=== PATIENT | female | born 1960 | race African-American/Black ===

== ENCOUNTER 2020-11-06 13:10 | Emergency (ER) | payer OTHER ==
[~2020-11-06] VITALS: Ht 162.6 cm; Wt 72.6 kg
--- NOTE | 2020-11-06 13:10 | NUR ---
ED Nurse Note: PATIENT WAS [facility] FROM [facility] DUE TO CHEST PAIN. PER PATIENT SHE WAS HAVING DIALYSIS STARTED HAVING CHEST PAIN WITH SOME SHORTNESS OF BREATH. PT STATED THAT SHE WAS AT ANOTHER HOSPITAL A WEEK AGO FOR THE SAME REASON. PT STATED THAT SHE WAS DIAGNOSED WITH BLOOD CLOTS IN THE LUNGS. DR. Romero STARTED LEFT EJ, BLOOD COLLECTED AND SENT TO LAB. PT A/OX4, BP 177/89, OTHER VSS.
[2020-11-06] MEDS ORDERED: KEPPRA1000 MG ORAL (13:23)
[2020-11-06] MEDS ORDERED: GABAPENTIN100 MG ORAL (13:23)
[2020-11-06] MEDS ORDERED: AMLODIPINE BESY10 MG ORAL (13:23)
[2020-11-06] MEDS ORDERED: FOLIC ACID1 MG ORAL (13:23)
[2020-11-06] MEDS ORDERED: RENVELA0.8 GM ORAL (13:23)
[2020-11-06] MEDS ORDERED: PREZCOBIX 8001 EACH PO (13:23)
[2020-11-06] MEDS ORDERED: MULTI VITAMIN1 EACH ORAL (13:23)
--- NOTE | 2020-11-06 13:39 | Emergency Room Report ---
History of Present Illness General Chief Complaint: Chest Pain Source: Patient (Philip Dumas MD) Present Illness HPI Disclaimer: Please note that this report is being documented using [employer] technology. This can lead to erroneous entry secondary to incorrect interpretat ion by the dictating instrument. HPI: 60-year-old female history of ESRD on hemodialysis, hypertension, recent diagnosis of PE presents for evaluation of chest pain. She arrives from dialysis complaining of left-sided chest pressure for the past 2 hours. She completed 2 hours of dialysis and typically gets 4. She reports mild shortness of breath but denies cough or fever. She states she was diagnosed with a pulmonary embolism at an outside hospital last week. Does not know what medication she was started on. She is a resident of nursing facility. Denies nausea, vomiting, diaphoresis. Reports global weakness and fatigue. PMH: ESRD on hemodialysis, hypertension PSH: Vascular access port right chest Allergies: Reviewed Social Hx: Reviewed (Philip Dumas MD) Allergies: Coded Allergies: ACETAMINOPHEN (Verified Allergy, Unknown, 11/06/20) TRAMADOL (Verified Allergy, Unknown, 11/06/20) COVID-19 Screening Contact w/high risk pt: No Experienced COVID-19 symptoms?: No COVID-19 Testing performed SAFETY TECH: No (Philip Dumas MD) Nursing Documentation-PMH Hx Hypertension: Yes Hx Diabetes: Yes Hx Dialysis: Yes (Philip Dumas MD) Review of Systems All Other Systems: negative except mentioned in HPI (Philip Dumas MD) Physical Exam Vital Signs Date Time Temp Pulse Resp B/P (MAP) Pulse Ox O2 Delivery O2 Flow Rate FiO2 11/06/20 13:08 97.3 82 18 180/94 (122) 98 Room Air General: Awake and alert, no acute distress, hypertensive HEENT: NC/AT. EOMI. Chest Wall: Dialysis access port right upper chest. Cardiovascular: RRR. S1 and S2 normal. No murmur appreciated Resp: Normal work of breathing. No cough, wheezing or crackles appreciated Abdomen: Abdomen is soft, nondistended. Nontender Skin: Intact. No abrasions, laceration or rash over the exposed skin MSK: Normal tone and bulk. Moving all extremities. No obvious deformity. Neuro: Awake and alert. Mentating appropriately. (Philip Dumas MD) Medical Decision Making Diagnostic Impression: Primary Impression: Chest pain Qualified Codes: R07.9 - Chest pain, unspecified Additional Impression: ESRD on dialysis ER Course 60-year-old female history of ESRD and recent PE diagnosed presents for evaluation of chest pain. She arrives from dialysis having completed have her treatment. Differential includes was not limited to increased PE burden, incomplete dialysis, ACS, angina, CHF, hypertensive urgency, hypertensive emergency, pneumonia, pulmonary edema among others. She arrives hypertensive. A left external jugular line was placed by me as the patient has poor vascular access. I have ordered labs, CTA. Nitroglycerin given. EKG shows sinus rhythm, normal axis and no signs of acute ischemia. No EKG evidence of hyperkalemia. (Philip Dumas MD) ER Course Hospital Course 60-year-old female presents with chest pain during dialysis Clinical course Patient initially seen and evaluated by Dr Dumas; please see his note for full history and physical Lab work including troponin negative No acute changes on EKG CT angio pending which shows no evidence of PE Discussed with PMD Dr. Mike. Agrees that patient has had multiple work-ups for chest pain and all of which have been negative. Agree that patient can be safely discharged back to [facility]. I feel this is a highly complex case requiring extensive working including EKG/Rhythm strip, Xray/CT/US, Blood/urine lab work, repeat exams while in ED, and administration of strong opiates/narcotics for pain control, admission to hospital or close patient follow up. Diagnosis - chest pain, ERSD on dialysis Stable and discharged to SNF. Instructed to followup with PMD. Return to ED if symptoms recur or worsen Laboratory Tests Test 11/06/20 13:34 White Blood Count 3.7 K/UL (4.8-10.8) L Red Blood Count 3.81 M/UL (4.20-5.40) L Hemoglobin 10.7 G/DL (12.0-16.0) L Hematocrit 33.1 % (37.0-47.0) L Mean Corpuscular Volume 87 FL (80-99) Mean Corpuscular Hemoglobin 27.9 PG (27.0-31.0) Mean Corpuscular Hemoglobin Concent 32.2 G/DL (32.0-36.0) Red Cell Distribution Width 19.0 % (11.6-14.8) H Platelet Count 101 K/UL (150-450) L Mean Platelet Volume 7.1 FL (6.5-10.1) Neutrophils (%) (Auto) 62.1 % (45.0-75.0) Lymphocytes (%) (Auto) 23.7 % (20.0-45.0) Monocytes (%) (Auto) 10.7 % (1.0-10.0) H Eosinophils (%) (Auto) 1.9 % (0.0-3.0) Basophils (%) (Auto) 1.6 % (0.0-2.0) Prothrombin Time 10.7 SEC (9.30-11.50) Prothromb Time International Ratio 1.0 (0.9-1.1) Activated Partial Thromboplast Time 34 SEC (23-33) H Sodium Level 130 MMOL/L (136-145) L Potassium Level 4.3 MMOL/L (3.5-5.1) Chloride Level 96 MMOL/L (98-107) L Carbon Dioxide Level 28 MMOL/L (21-32) Anion Gap 6 mmol/L (5-15) Blood Urea Nitrogen 59 mg/dL (7-18) H Creatinine 5.9 MG/DL (0.55-1.30) H Estimat Glomerular Filtration Rate 7.3 mL/min (>60) Glucose Level 95 MG/DL (74-106) Calcium Level 8.7 MG/DL (8.5-10.1) Total Bilirubin 0.3 MG/DL (0.2-1.0) Aspartate Amino Transf (AST/SGOT) 18 U/L (15-37) Alanine Aminotransferase (ALT/SGPT) 23 U/L (12-78) Alkaline Phosphatase 153 U/L (46-116) H Troponin I 0.001 ng/mL (0.000-0.056) Total Protein 9.1 G/DL (6.4-8.2) H Albumin 3.4 G/DL (3.4-5.0) Globulin 5.7 g/dL Albumin/Globulin Ratio 0.6 (1.0-2.7) L (Garcia Boyer MD) EKG Diagnostic Results Troponin ordered: Yes When was troponin ordered?: Nov 06, 2020 EKG Time: 13:17 Rate: normal Rhythm: NSR ST Segments: no acute changes Other Impression Sinus rhythm, normal axis, normal intervals, no ST segment changes. (Philip Dumas MD) Rhythm Strip Diag. Results Rhythm Strip Time: 13:17 EP Interpretation: yes Rate: 70s Rhythm: NSR, no PVC's, no ectopy (Philip Dumas MD) Chest X-Ray Diagnostic Results Chest X-Ray Diagnostic Results : Chest X-Ray Ordered: Yes # of Views/Limited/Complete: 1 View Indication: Chest Pain Interpretation: no consolidation, no effusion, no pneumothorax, other - Dialysis catheter in the right chest Impression: No acute disease Electronically Signed by: Electronically signed by Dr. Philip Dumas MD (Philip Dumas MD) CT/MRI/US Diagnostic Results CT/MRI/US Diagnostic Results : Imaging Test Ordered: CTA Impression Procedure: CTA Chest w Contrast EXAM: CT CTA Chest w Contrast CLINICAL HISTORY: Chest pain and shortness of breath. Evaluate for PE. TECHNIQUE: CT angiogram of the pulmonary vasculature performed with IV contrast. 2-D and 3-D reformat images obtained. All CT scans at this facility are performed using dose modulation techniques as appropriate to a performed exam including the following: automated exposure control with adjustment of the mA and/or kV according to patient size. RADIATION DOSE: CTDIvol: 41.2 mGy DLP: 257.5 mGy-cm Dose information generated by the CT scanner is available in PACS. COMPARISON: None FINDINGS: There is adequate opacification of the pulmonary vascularity. There is no central filling defects or thrombus identified. Peripheral subsegmental branches also appear unremarkable. The aorta is normal in caliber and there is no intimal flap or dissection. There is no mediastinal mass or adenopathy. Note is made contrast was injected via the left arm. 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 The lungs are mostly clear except for some dependent atelectasis bilaterally. Limited views of the upper abdomen appear unremarkable. There is no acute osseous abnormality noted. IMPRESSION: NO CT EVIDENCE OF PULMONARY EMBOLISM. MILD BILATERAL ATELECTASIS. 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 (Garcia Boyer MD) Last Vital Signs Date Time Temp Pulse Resp B/P (MAP) Pulse Ox O2 Delivery O2 Flow Rate FiO2 11/06/20 13:08 97.3 82 18 180/94 (122) 98 Room Air (Philip Dumas MD) Status: improved (Garcia Boyer MD) Disposition: SNF Condition: Stable Philip Dumas MD Nov 06, 2020 13:39 Garcia Boyer MD Nov 06, 2020 16:18
[2020-11-06 13:46] LABS: BASOPHILS % (AUTO) 1.6 % (0.0-2.0); EOSINOPHILS % (AUTO) 1.9 % (0.0-3.0); HEMATOCRIT 33.1 % (37.0-47.0); HEMOGLOBIN 10.7 G/DL (12.0-16.0); LYMPHOCYTES % (AUTO) 23.7 % (20.0-45.0); MEAN CORPUSCULAR VOLUME 87 FL (80-99); MONOCYTES % (AUTO) 10.7 % (1.0-10.0); NEUTROPHILS % (AUTO) 62.1 % (45.0-75.0); PLATELET COUNT 101 K/UL (150-450); RED BLOOD COUNT 3.81 M/UL (4.20-5.40); WHITE BLOOD COUNT 3.7 K/UL (4.8-10.8)
[2020-11-06] MEDS ORDERED: Nitroglycerin Subl 0.4mg tab SL PRN (14:00)
[2020-11-06] MEDS ORDERED: Nitroglycerin 2% oint pkt TOPIC ONE (14:00)
[2020-11-06 14:02] LABS: CALCIUM 8.7 MG/DL (8.5-10.1); CREATININE 5.9 MG/DL (0.55-1.30); POTASSIUM 4.3 MMOL/L (3.5-5.1)
[2020-11-06 14:06] LABS: ALBUMIN 3.4 G/DL (3.4-5.0); ALBUMIN/GLOBULIN RATIO 0.6 (1.0-2.7); BILIRUBIN,TOTAL 0.3 MG/DL (0.2-1.0)
--- NOTE | 2020-11-06 14:15 | NUR ---
ED Nurse Note: pt off floor for ct scan.
[2020-11-06 14:22] VITALS: BP 177/89
--- NOTE | 2020-11-06 14:27 | NUR ---
ED Nurse Note: PT BACK ON FLOOR FROM CT SCAN.
--- NOTE | 2020-11-06 15:00 | Diagnostic Imaging Report ---
EXAM: CT CTA Chest w Contrast CLINICAL HISTORY: Chest pain and shortness of breath. Evaluate for PE. TECHNIQUE: CT angiogram of the pulmonary vasculature performed with IV contrast. 2-D and 3-D reformat images obtained. All CT scans at this facility are performed using dose modulation techniques as appropriate to a performed exam including the following: automated exposure control with adjustment of the mA and/or kV according to patient size. RADIATION DOSE: CTDIvol: 41.2 mGy DLP: 257.5 mGy-cm Dose information generated by the CT scanner is available in PACS. COMPARISON: None FINDINGS: There is adequate opacification of the pulmonary vascularity. There is no central filling defects or thrombus identified. Peripheral subsegmental branches also appear unremarkable. The aorta is normal in caliber and there is no intimal flap or dissection. There is no mediastinal mass or adenopathy. Note is made contrast was injected via the left arm. 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 The lungs are mostly clear except for some dependent atelectasis bilaterally. Limited views of the upper abdomen appear unremarkable. There is no acute osseous abnormality noted. IMPRESSION: NO CT EVIDENCE OF PULMONARY EMBOLISM. MILD BILATERAL ATELECTASIS. 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
--- NOTE | 2020-11-06 15:09 | Diagnostic Imaging Report ---
Procedure: XRAY Chest 1v Reason for study: Chest pain Comparison films: None. FINDINGS: There is a right central venous catheter in place. Radiograph is slightly rotated. Vascularity is normal. The lung giron are clear bilaterally. Cardiac and mediastinal silhouette are within normal limits. CP angles are sharp. The bony thorax appear unremarkable. IMPRESSION: NO ACUTE CARDIOPULMONARY DISEASE.
[2020-11-06] MEDS ORDERED: DiphenhydrAMINE 50mg/ml Inj IVP ONE (15:30)
[2020-11-06] MEDS ORDERED: Morphine Sulfate 4mg/ml Inj (IV USE ONLY) IVP ONE (15:30)
--- NOTE | 2020-11-06 15:50 | NUR ---
patient is to be transferd back to [facility] via [facility] eta is 30 minites. reservation number is [phone]
--- NOTE | 2020-11-06 16:02 | NUR ---
ED Nurse Note: notified alberto bolivar at [facility] regarding patient coming back to facility.
[2020-11-06 16:27] VITALS: BP 134/76
--- NOTE | 2020-11-06 16:29 | NUR ---
ED Nurse Note: Pt cleared by health care Provider for discharge. DC instructions was given and explained to pt and verbalized understanding of teachings. All medical deviecs such as ID band and iv removed. Pt is AAO x4, and left with all personal belongings. pt was transferred via private transportation.
== END 2020-11-06 16:30 ==
LOC: EDBD 13:10 → EMR 14:26
DX: R07.9 Chest pain, unspecified (principal); E11.22 Type 2 diabetes mellitus with diabetic chronic kidney disease; I12.0 Hypertensive chronic kidney disease with stage 5 chronic kidney disease or end stage renal disease; N18.6 End stage renal disease; Z99.2 Dependence on renal dialysis; Z88.5 Allergy status to narcotic agent; Z88.6 Allergy status to analgesic agent
CPT/HCPCS: 36415; 71045; 71275; 80053; 84484; 85025; 85610; 85730; 93005; 96374; 96375; J1200; J2270; Q9967; Z7502; 99284

== ENCOUNTER 2021-01-21 18:08 | Inpatient (IN) | payer OTHER ==
[~2021-01-21] VITALS: Ht 172.7 cm; Wt 81.6 kg
[~2021-01-21 18:08] MED LIST: AMLODIPINE BESY10 MG ORAL; FOLIC ACID1 MG ORAL; GABAPENTIN100 MG ORAL; KEPPRA1000 MG ORAL; MULTI VITAMIN1 EACH ORAL; PREZCOBIX 8001 EACH PO; RENVELA0.8 GM ORAL
--- NOTE | 2021-01-21 18:37 | Emergency Room Report ---
History of Present Illness General Chief Complaint: Abnormal Labs Source: Patient Present Illness HPI Disclaimer: Please note that this report is being documented using [employer] technology. This can lead to erroneous entry secondary to incorrect interpretation by the dictating instrument. HPI: 60-year-old female history of ESRD on hemodialysis MWF, HIV, previous Covid infection, hypertension presents for blood transfusion and dialysis. Patient missed dialysis today and also was found of a hemoglobin of 6.9. Her PMD, Dr. Mike, sent her in for admission. He reports that she has a chronically elevated troponin and recent angio showed no evidence of vessel disease. Patient is in no distress. No bleeding noted. Recent transfusion. PMH: ESRD on hemodialysis, hypertension PSH: Vascular access port right chest Allergies: Reviewed Social Hx: Reviewed Allergies: Coded Allergies: ACETAMINOPHEN (Verified Allergy, Unknown, 11/06/20) CODEINE (Verified Allergy, Unknown, 01/21/21) TRAMADOL (Verified Allergy, Unknown, 11/06/20) COVID-19 Screening Contact w/high risk pt: No Experienced COVID-19 symptoms?: No COVID-19 Testing performed CONSULTANT IN ERGONOMICS AND SAFETY: Yes COVID-19 Screening: Positive COVID-19 COVID-19 Testing Source: 12/22/20 Nursing Documentation-PMH Hx Hypertension: Yes Hx Diabetes: Yes Hx Dialysis: Yes Review of Systems All Other Systems: negative except mentioned in HPI Physical Exam Vital Signs Date Time Temp Pulse Resp B/P (MAP) Pulse Ox O2 Delivery O2 Flow Rate FiO2 01/21/21 18:10 97.5 65 20 120/80 (93) 94 Room Air General: Awake and alert, no acute distress HEENT: NC/AT. EOMI. Chest Wall: Dialysis catheter right side Cardiovascular: RRR. S1 and S2 normal. No murmur appreciated Resp: Normal work of breathing. No cough, wheezing or crackles appreciated Abdomen: Abdomen is soft, nondistended. Nontender Skin: Intact. No abrasions, laceration or rash over the exposed skin MSK: Normal tone and bulk. Moving all extremities. No obvious deformity. Neuro: Awake and alert. Mentating appropriately. Procedures Critical Care Time Critical Care Time Total critical care time: Approximately 45 minutes Due to a high probability of clinically significant, life threatening deterioration, the patient required the highest level of preparedness to intervene emergently and I personally spent this critical care time directly and personally managing the patient. This critical care time included obtaining a history, examining the patient, pulse oximetry, ordering and reviewing studies, ordering treatments, evaluating response to treatment and updating management plan as needed, frequent reassessment and discussion with other providers as well as arranging for ultimate disposition. This critical to care time was performed to assess and manage the high probability of life-threatening deterioration that could result in multiorgan failure. This critical care time is separate from the separately billable procedures and treating other patients. Medical Decision Making Diagnostic Impression: Primary Impression: Anemia Additional Impressions: ESRD (end stage renal disease) on dialysis Thrombocytopenia ER Course 60-year-old female history of ESRD on hemodialysis presents for anemia and missed dialysis today. Hemoglobin is 5.9. Also thrombocytopenic. Will transfuse red cells. No active bleeding. Admitted to her PMD Dr. Mike Laboratory Tests Test 01/21/21 19:41 01/21/21 20:06 White Blood Count 3.9 K/UL (4.8-10.8) L Red Blood Count 2.21 M/UL (4.20-5.40) L Hemoglobin 5.9 G/DL (12.0-16.0) *L Hematocrit 19.6 % (37.0-47.0) L Mean Corpuscular Volume 89 FL (80-99) Mean Corpuscular Hemoglobin 26.9 PG (27.0-31.0) L Mean Corpuscular Hemoglobin Concent 30.3 G/DL (32.0-36.0) L Red Cell Distribution Width 19.6 % (11.6-14.8) H Platelet Count 77 K/UL (150-450) L Mean Platelet Volume 7.1 FL (6.5-10.1) Neutrophils (%) (Auto) % (45.0-75.0) Lymphocytes (%) (Auto) % (20.0-45.0) Monocytes (%) (Auto) % (1.0-10.0) Eosinophils (%) (Auto) % (0.0-3.0) Basophils (%) (Auto) % (0.0-2.0) Differential Total Cells Counted 100 Neutrophils % (Manual) 50 % (45-75) Lymphocytes % (Manual) 41 % (20-45) Monocytes % (Manual) 5 % (1-10) Eosinophils % (Manual) 1 % (0-3) Basophils % (Manual) 0 % (0-2) Band Neutrophils 3 % (0-8) Platelet Estimate Decreased L Platelet Morphology Normal Hypochromasia 3+ Anisocytosis 2+ Sodium Level 135 MMOL/L (136-145) L Potassium Level 5.9 MMOL/L (3.5-5.1) H Chloride Level 102 MMOL/L (98-107) Carbon Dioxide Level 20 MMOL/L (21-32) L Anion Gap 13 mmol/L (5-15) Blood Urea Nitrogen 115 mg/dL (7-18) H Creatinine 14.8 MG/DL (0.55-1.30) H Estimated Glomerular Filtration Rate 3.0 mL/min (>60) Glucose Level 149 MG/DL (74-106) H Calcium Level 8.6 MG/DL (8.5-10.1) Phosphorus Level 5.8 MG/DL (2.5-4.9) H Magnesium Level 3.3 MG/DL (1.8-2.4) H Total Bilirubin 0.6 MG/DL (0.2-1.0) Aspartate Amino Transferase (AST) 17 U/L (15-37) Alanine Aminotransferase (ALT) 17 U/L (12-78) Alkaline Phosphatase 130 U/L (46-116) H Troponin I 0.000 ng/mL (0.000-0.056) Pro-B-Type Natriuretic Peptide 8630 pg/mL (0-125) H Total Protein 8.4 G/DL (6.4-8.2) H Albumin 2.9 G/DL (3.4-5.0) L Globulin 5.5 g/dL Albumin/Globulin Ratio 0.5 (1.0-2.7) L Prothrombin Time 11.0 SEC (9.30-11.50) Prothrombin Time INR 1.0 (0.9-1.1) Activated Partial Thromboplast Time 22 SEC (23-33) L Uric Acid Pending Iron Level Pending Unsaturated Iron Binding Pending Ferritin Pending Vitamin B12 Level Pending Folate Pending EKG Diagnostic Results Troponin ordered: Yes When was troponin ordered?: Jan 21, 2021 EKG Time: 18:42 Rate: normal Rhythm: NSR ST Segments: no acute changes Other Impression Sinus rhythm, normal axis, prolonged QTC at 530 ms, no ST segment changes, no hyperacute T waves Rhythm Strip Diag. Results Rhythm Strip Time: 18:42 EP Interpretation: yes Rate: 60s Rhythm: NSR, no PVC's, no ectopy Last Vital Signs Date Time Temp Pulse Resp B/P (MAP) Pulse Ox O2 Delivery O2 Flow Rate FiO2 01/21/21 18:10 97.5 65 20 120/80 (93) 94 Room Air Disposition: ADMITTED INPATIENT Condition: Serious Philip Dumas MD Jan 21, 2021 18:36
[2021-01-21] MEDS ORDERED: ACETAMINOPHEN325 M1 ORAL (18:48)
[2021-01-21] MEDS ORDERED: CLONIDINE HCL0.1 MG PO (18:48)
[2021-01-21] MEDS ORDERED: FERROUS SULFAT325 MG ORAL (18:48)
[2021-01-21] MEDS ORDERED: GABAPENTIN100 MG ORAL (18:48)
[2021-01-21] MEDS ORDERED: LEXAPRO10 MG ORAL (18:48)
[2021-01-21] MEDS ORDERED: EPOGEN4000 UNIT/ SUBQ (18:48)
[2021-01-21] MEDS ORDERED: ECOTRIN81 MG PO (18:48)
[2021-01-21] MEDS ORDERED: FOLIC ACID1 MG ORAL (18:48)
[2021-01-21] MEDS ORDERED: ZINC SULFATE220 M1 ORAL (18:53)
[2021-01-21] MEDS ORDERED: LEVETIRACETAM500 MG ORAL (18:53)
[2021-01-21] MEDS ORDERED: NORCO 10/3251 EA ORAL (18:53)
[2021-01-21] MEDS ORDERED: PANTOPRAZOLE SO40 MG ORAL (18:53)
[2021-01-21] MEDS ORDERED: NITROSTAT0.3 MG SL (18:53)
[2021-01-21] MEDS ORDERED: ADALAT20 MG ORAL (18:53)
[2021-01-21] MEDS ORDERED: SENNA LAXATIVE8.6 MG PO (18:53)
--- NOTE | 2021-01-21 19:10 | NUR ---
ED Nurse Note: pt arrived for abnormal labs, placed in room at 1845. primary rn busy with blood transfusion, other rn assisting pt
--- NOTE | 2021-01-21 19:10 | NUR ---
ED Nurse Note: Difficult blood draw attempted 3x ski edge painter informed and will assist
[2021-01-21 20:15] LABS: HEMATOCRIT 19.6 % (37.0-47.0); MEAN CORPUSCULAR VOLUME 89 FL (80-99); PLATELET COUNT 77 K/UL (150-450); RED BLOOD COUNT 2.21 M/UL (4.20-5.40); RED CELL DISTRIBUTION WIDTH 19.6 % (11.6-14.8); WHITE BLOOD COUNT 3.9 K/UL (4.8-10.8)
[2021-01-21 20:22] LABS: HEMOGLOBIN 5.9 G/DL (12.0-16.0)
[2021-01-21 20:29] LABS: PHOSPHORUS 5.8 MG/DL (2.5-4.9)
[2021-01-21 20:39] LABS: ALBUMIN 2.9 G/DL (3.4-5.0); ALBUMIN/GLOBULIN RATIO 0.5 (1.0-2.7); BILIRUBIN,TOTAL 0.6 MG/DL (0.2-1.0); CALCIUM 8.6 MG/DL (8.5-10.1); CREATININE 14.8 MG/DL (0.55-1.30); POTASSIUM 5.9 MMOL/L (3.5-5.1)
[2021-01-21] MEDS ORDERED: Nitroglycerin Subl 0.4mg tab SL PRN (20:45)
--- NOTE | 2021-01-21 21:05 | NUR ---
labs drawn and sent to able to get 20g r forearm
[2021-01-21 21:40] VITALS: BP 133/106
[2021-01-21 21:59] LABS: FERRITIN > 2000 NG/ML (8-388)
[2021-01-21] MEDS ORDERED: Morphine Sulfate 2mg/ml Inj(IV/IM USE ONLY) ONE (22:08)
[2021-01-21] MEDS ORDERED: DiphenhydrAMINE 50mg/ml Inj ONE (22:10)
[2021-01-21 22:22] LABS: % IRON SATURATION 93 % (15-50); IRON 131 ug/dL (50-175); TOTAL IRON BINDING CAPACITY 141 ug/dL (250-450)
[2021-01-22] VITALS (8 sets, daily range): BP systolic 105–182; BP diastolic 57–91
[2021-01-22] MEDS: Morphine Sulfate 2mg/ml Inj(IV/IM USE ONLY) IVP PRN ×3 (00:21→20:13)
--- NOTE | 2021-01-22 02:47 | NUR ---
ED Nurse Note: Patient self removed IV by accident, patient is a hard stich 2nd bag of blood will be delayed
--- NOTE | 2021-01-22 03:58 | NUR ---
ED Nurse Note: attempted IV 6x no success informed magnetometer operator
--- NOTE | 2021-01-22 04:54 | NUR ---
ED Nurse Note: ED Charge unable to get IV access, currently exploring other options
--- NOTE | 2021-01-22 05:52 | NUR ---
ED Nurse Note: ED MD attempted peripheral line unable to obtain access, unable to obtain AM labs
[2021-01-22] MEDS: HYDROcodone/Acetamin 10/325 tab ORAL PRN ×3 (06:06→21:44)
--- NOTE | 2021-01-22 08:55 | History and Physical ---
History of Present Illness General Date patient seen: Jan 21, 2021 Reason for Hospitalization: Abnormal Labs Present Illness HPI 60-year-old female history of ESRD on hemodialysis MWF, HIV, previous Covid infection, hypertension presents for blood transfusion and dialysis. Patient missed dialysis today and her usual dialysis center did not accept due to anemia and need for PRBC ( found of a hemoglobin of 6.9 by outside lab ) I sent her in for admission today. the patient has a chronically elevated troponin and recent angio showed no evidence of vessel disease. Patient is in no distress. No bleeding noted. Recent transfusion. She is on Epogen TIW 2000 units SQ and her primary flight coordinator does NOT want to increase the dose anymore at this time. Allergies: Coded Allergies: ACETAMINOPHEN (Verified Allergy, Unknown, 11/06/20) CODEINE (Verified Allergy, Unknown, 01/21/21) TRAMADOL (Verified Allergy, Unknown, 11/06/20) COVID-19 Screening Contact w/high risk pt: No Experienced COVID-19 symptoms?: No Medication History Scheduled Amlodipine Besylate* (Amlodipine Besylate*), 10 MG ORAL DAILY, (Reported) Aspirin (Ecotrin), 81 MG PO DAILY, (Reported) Clonidine Hcl (Clonidine Hcl), 0.1 MG PO Q4HR, (Reported) Epoetin Mata (Epogen), 4,000 UNIT SUBQ 3XW, (Reported) Escitalopram Oxalate* (Lexapro*), 10 MG ORAL DAILY, (Reported) Ferrous Sulfate* (Ferrous Sulfate*), 325 MG ORAL DAILY, (Reported) Folic Acid* (Folic Acid*), 1 MG ORAL DAILY, (Reported) Folic Acid* (Folic Acid*), 1 MG ORAL DAILY, (Reported) Gabapentin* (Gabapentin*), 100 MG ORAL DAILY, (Reported) Gabapentin* (Gabapentin*), 100 MG ORAL THREE TIMES A DAY, (Reported) Levetiracetam (Keppra), 1,000 MG ORAL DAILY, (Reported) Levetiracetam* (Levetiracetam*), 500 MG ORAL TWICE A DAY, (Reported) Multivitamin (Multi Vitamin Daily), 1 TAB ORAL DAILY, (Reported) Nifedipine (Nifedipine*), 60 MG ORAL DAILY, (Reported) Nitroglycerin (Nitrostat), 0.4 MG SL q5mins, (Reported) Pantoprazole* (Pantoprazole*), 40 MG ORAL DAILY, (Reported) Sennosides (Senna Laxative), 8.6 MG PO TWICE A DAY, (Reported) Sevelamer Carbonate* (Renvela*), 800 MG ORAL THREE TIMES A DAY, (Reported) Zinc Sulfate (Zinc Sulfate*), 220 MG ORAL DAILY, (Reported) Scheduled PRN Acetaminophen* (Acetaminophen 325MG Tablet*), 650 MG ORAL Q6H PRN for For Pain, (Reported) Hydrocodone/Acetaminophen (Hydrocodon-Acetaminophn 10-325), 1 TAB ORAL Q4H PRN for For Pain, (Reported) Miscellaneous Medications Darunavir/Cobicistat (Prezcobix 800 mg-150 mg Tablet), 1 EACH PO, (Reported) Patient History Healthcare decision maker Resuscitation status Advanced Directive on File Review of Systems All Other Systems: negative except mentioned in HPI Physical Exam General Appearance: WD/WN, moderate distress Lines, tubes and drains: peripheral HEENT: normocephalic, atraumatic Neck: non-tender, normal alignment Respiratory/Chest: lungs clear Cardiovascular/Chest: normal rate Abdomen: non tender Neurologic: manager of case II-XII grossly normal Last 24 Hour Vital Signs Date Time Temp Pulse Resp B/P (MAP) Pulse Ox O2 Delivery O2 Flow Rate FiO2 01/22/21 08:15 64 18 129/67 97 Room Air 01/22/21 06:06 160/93 01/22/21 05:21 97.8 71 16 159/87 99 Room Air 01/22/21 05:15 97.8 68 20 166/82 98 Room Air 01/22/21 00:21 167/81 01/21/21 21:40 97.5 20 133/106 98 Room Air 01/21/21 18:10 97.5 65 20 120/80 (93) 94 Room Air Intake and Output 01/21/21 01/22/21 19:00 07:00 Intake Total 0 ml Balance 0 ml Intake Oral 0 ml Laboratory Tests Test 01/21/21 19:41 01/21/21 20:06 White Blood Count 3.9 K/UL (4.8-10.8) L Red Blood Count 2.21 M/UL (4.20-5.40) L Hemoglobin 5.9 G/DL (12.0-16.0) *L Hematocrit 19.6 % (37.0-47.0) L Mean Corpuscular Volume 89 FL (80-99) Mean Corpuscular Hemoglobin 26.9 PG (27.0-31.0) L Mean Corpuscular Hemoglobin Concent 30.3 G/DL (32.0-36.0) L Red Cell Distribution Width 19.6 % (11.6-14.8) H Platelet Count 77 K/UL (150-450) L Mean Platelet Volume 7.1 FL (6.5-10.1) Neutrophils (%) (Auto) % (45.0-75.0) Lymphocytes (%) (Auto) % (20.0-45.0) Monocytes (%) (Auto) % (1.0-10.0) Eosinophils (%) (Auto) % (0.0-3.0) Basophils (%) (Auto) % (0.0-2.0) Differential Total Cells Counted 100 Neutrophils % (Manual) 50 % (45-75) Lymphocytes % (Manual) 41 % (20-45) Monocytes % (Manual) 5 % (1-10) Eosinophils % (Manual) 1 % (0-3) Basophils % (Manual) 0 % (0-2) Band Neutrophils 3 % (0-8) Platelet Estimate Decreased L Platelet Morphology Normal Hypochromasia 3+ Anisocytosis 2+ Sodium Level 135 MMOL/L (136-145) L Potassium Level 5.9 MMOL/L (3.5-5.1) H Chloride Level 102 MMOL/L (98-107) Carbon Dioxide Level 20 MMOL/L (21-32) L Anion Gap 13 mmol/L (5-15) Blood Urea Nitrogen 115 mg/dL (7-18) H Creatinine 14.8 MG/DL (0.55-1.30) H Estimat Glomerular Filtration Rate 3.0 mL/min (>60) Glucose Level 149 MG/DL (74-106) H Calcium Level 8.6 MG/DL (8.5-10.1) Phosphorus Level 5.8 MG/DL (2.5-4.9) H Magnesium Level 3.3 MG/DL (1.8-2.4) H Total Bilirubin 0.6 MG/DL (0.2-1.0) Aspartate Amino Transf (AST/SGOT) 17 U/L (15-37) Alanine Aminotransferase (ALT/SGPT) 17 U/L (12-78) Alkaline Phosphatase 130 U/L (46-116) H Troponin I 0.000 ng/mL (0.000-0.056) Pro-B-Type Natriuretic Peptide 8630 pg/mL (0-125) H Total Protein 8.4 G/DL (6.4-8.2) H Albumin 2.9 G/DL (3.4-5.0) L Globulin 5.5 g/dL Albumin/Globulin Ratio 0.5 (1.0-2.7) L Prothrombin Time 11.0 SEC (9.30-11.50) Prothromb Time International Ratio 1.0 (0.9-1.1) Activated Partial Thromboplast Time 22 SEC (23-33) L Uric Acid 6.4 MG/DL (2.6-7.2) Iron Level 131 ug/dL (50-175) Total Iron Binding Capacity 141 ug/dL (250-450) L Percent Iron Saturation 93 % (15-50) H Unsaturated Iron Binding 10 ug/dL (112-346) L Ferritin > 2000 NG/ML (8-388) H Vitamin B12 Level 1750 PG/ML (193-986) H Folate 83.3 NG/ML (8.6-58.9) H Height (Feet): 5 Height (Inches): 8.00 Weight (Pounds): 180 Medications Current Medications Medications (Trade) Dose Ordered Sig/Maycol Route PRN Reason Start Time Stop Time Status Last Admin Dose Admin Acetaminophen (Tylenol) 650 mg Q4H PRN ORAL Mild Pain (Pain Scale 1-3) 01/21/21 20:45 02/20/21 20:44 Acetaminophen (Tylenol) 650 mg Q4H PRN ORAL Temp >100.5 01/21/21 20:45 02/20/21 20:44 Acetaminophen/ Hydrocodone Bitart (Burwell 10/325) 1 tab Q4H PRN ORAL For Pain 01/21/21 20:45 01/28/21 20:44 01/22/21 06:06 Aspirin (Ecotrin) 81 mg DAILY ORAL 01/22/21 09:00 03/08/21 08:59 Clonidine HCl (Catapres Tab) 0.1 mg Q4HR PRN ORAL ELEVATED SBP 01/22/21 00:00 04/22/21 00:00 01/22/21 06:06 Dextrose (Dextrose 50%) 25 ml Q30M PRN IV Hypoglycemia 01/21/21 20:45 04/21/21 20:44 Dextrose (Dextrose 50%) 50 ml Q30M PRN IV Hypoglycemia 01/21/21 20:45 04/21/21 20:44 Escitalopram Oxalate (Lexapro) 10 mg DAILY ORAL 01/22/21 09:00 02/21/21 08:59 Famotidine (Pepcid) 40 mg DAILY ORAL 01/22/21 09:00 04/22/21 08:59 Folic Acid (Folate) 1 mg DAILY ORAL 01/22/21 09:00 02/21/21 08:59 Gabapentin (Neurontin) 100 mg DAILY ORAL 01/22/21 09:00 02/21/21 08:59 Heparin Sodium (Porcine) (Heparin 5000 units/ml) 5,000 units EVERY 12 HOURS SUBQ 01/21/21 21:00 03/07/21 20:59 UNV Morphine Sulfate (Morphine Sulfate) 2 mg EVERY 4 HOURS PRN IVP Moderate Pain (Pain Scale 4-6) 01/21/21 20:45 01/28/21 20:44 01/22/21 00:21 Nitroglycerin (Ntg) 0.4 mg Q5M PRN SL Prn Chest Pain 01/21/21 20:45 02/20/21 20:44 Pantoprazole (Protonix) 40 mg BID ORAL 01/21/21 21:30 02/21/21 08:59 01/21/21 21:30 Sennosides (Senokot) 8.6 mg TWICE A DAY ORAL 01/22/21 09:00 02/21/21 08:59 Sevelamer Carbonate (Renvela) 800 mg THREE TIMES A DAY ORAL 01/22/21 09:00 04/22/21 08:59 Sodium Chloride 1,000 ml @ 10 mls/hr Q24H ONCE IV 01/21/21 20:30 01/22/21 20:29 01/21/21 20:38 Zinc Sulfate (Zinc Sulfate) 220 mg DAILY ORAL 01/22/21 09:00 04/22/21 08:59 Assessment/Plan Status: stable Assessment/Plan: 60 y/o F admitted to the hospital due to: # Acute on chronic anemia of CKD / ESRD Needs 2 units PRBC Monitor I/O Continue Epogen per nephrology 2000 units TIW # ESRD on HD Dr. Salgado consulted HD planned for this admission. # HTN Resume home meds # CAD Negative cardiac angiogram in the last 2 months Monitor on telemetry due to anemia # Physical deconditioning PT as tolerated Resident at [facility] # DVT ppx Heparin hold if platelets < 50 K # GI ppx PPI in place FULL CODE Catrachito Mike MD Jan 22, 2021 08:55
--- NOTE | 2021-01-22 08:58 | General Progress Note ---
Subjective Date patient seen: Jan 22, 2021 Time patient seen: 08:00 ROS Limited/Unobtainable: No Allergies: Coded Allergies: ACETAMINOPHEN (Verified Allergy, Unknown, 11/06/20) CODEINE (Verified Allergy, Unknown, 01/21/21) TRAMADOL (Verified Allergy, Unknown, 11/06/20) Subjective Denies chest pain, sob, nausea or emesis. Objective Last 24 Hour Vital Signs Date Time Temp Pulse Resp B/P (MAP) Pulse Ox O2 Delivery O2 Flow Rate FiO2 01/22/21 08:15 64 18 129/67 97 Room Air 01/22/21 06:06 160/93 01/22/21 05:21 97.8 71 16 159/87 99 Room Air 01/22/21 05:15 97.8 68 20 166/82 98 Room Air 01/22/21 00:21 167/81 01/21/21 21:40 97.5 20 133/106 98 Room Air 01/21/21 18:10 97.5 65 20 120/80 (93) 94 Room Air Intake and Output 01/21/21 01/22/21 19:00 07:00 Intake Total 0 ml Balance 0 ml Intake Oral 0 ml Laboratory Tests 01/21/21 19:41: White Blood Count 3.9L, Red Blood Count 2.21L, Hemoglobin 5.9*L, Hematocrit 19.6L, Mean Corpuscular Volume 89, Mean Corpuscular Hemoglobin 26.9L, Mean Corpuscular Hemoglobin Concent 30.3L, Red Cell Distribution Width 19.6H, Platelet Count 77L, Mean Platelet Volume 7.1, Neutrophils (%) (Auto) , Lymphocytes (%) (Auto) , Monocytes (%) (Auto) , Eosinophils (%) (Auto) , Basophils (%) (Auto) , Differential Total Cells Counted 100, Neutrophils % (Manual) 50, Lymphocytes % (Manual) 41, Monocytes % (Manual) 5, Eosinophils % (Manual) 1, Basophils % (Manual) 0, Band Neutrophils 3, Platelet Estimate DecreasedL, Platelet Morphology Normal, Hypochromasia 3+, Anisocytosis 2+, Sodium Level 135L, Potassium Level 5.9H, Chloride Level 102, Carbon Dioxide Level 20L, Anion Gap 13, Blood Urea Nitrogen 115H, Creatinine 14.8H, Estimat Glomerular Filtration Rate 3.0, Glucose Level 149H, Calcium Level 8.6, Phosphorus Level 5.8H, Magnesium Level 3.3H, Total Bilirubin 0.6, Aspartate A gonzalez Transf (AST/SGOT) 17, Alanine Aminotransferase (ALT/SGPT) 17, Alkaline Phosphatase 130H, Troponin I 0.000, Pro-B-Type Natriuretic Peptide 8630H, Total Protein 8.4H, Albumin 2.9L, Globulin 5.5, Albumin/Globulin Ratio 0.5L 01/21/21 20:06: Prothrombin Time 11.0, Prothromb Time International Ratio 1.0, Activated Partial Thromboplast Time 22L, Uric Acid 6.4, Iron Level 131, Total Iron Binding Capacity 141L, Percent Iron Saturation 93H, Unsaturated Iron Binding 10L, Ferritin > 2000H, Vitamin B12 Level 1750H, Folate 83.3H Height (Feet): 5 Height (Inches): 8.00 Weight (Pounds): 180 General Appearance: WD/WN EENT: PERRL/EOMI Neck: non-tender Cardiovascular: normal rate Respiratory/Chest: lungs clear Abdomen: non tender Edema: trace edema Neurologic: acls nurse II-XII grossly normal Skin: normal pigmentation Assessment/Plan Status: stable Assessment/Plan: 60 y/o F admitted to the hospital due to: # Acute on chronic anemia of CKD / ESRD Needs 2 units PRBC ( overnight 1 unit given and IV access was lost ) Monitor I/O Continue Epogen per nephrology 2000 units TIW # ESRD on HD Dr. Salgado consulted HD planned for this admission, today per discussion with RN at the bedside. # HTN Resume home meds # CAD Negative cardiac angiogram in the last 2 months Monitor on telemetry due to anemia # Physical deconditioning PT as tolerated Resident at [facility] # DVT ppx Heparin hold if platelets < 50 K ( discussed with pharmacy ) # GI ppx PPI in place FULL CODE Catrachito Mike MD Jan 22, 2021 08:58
[2021-01-22] MEDS: Heparin 5000 units/ml inj SUBQ SCH ×2 (09:00→20:16)
[2021-01-22] MEDS ORDERED: Renvela 800mg Pkt ORAL SCH (09:00)
[2021-01-22] MEDS: Zinc Sulfate 220mg ORAL SCH (09:00)
[2021-01-22] MEDS: Aspirin EC 81mg tab ORAL SCH (09:00)
--- NOTE | 2021-01-22 10:03 | NUR ---
attemtped to call report, rn busy.
--- NOTE | 2021-01-22 10:14 | NUR ---
ED Nurse Note: called report to alberto morris
--- NOTE | 2021-01-22 13:06 | Consultation ---
Consult Note Consult Note I am asked to evaluate the patient at the request of Dr. Mike for dialysis treatment Emergency room note: Chief Complaint: Abnormal Labs HPI: 60-year-old female history of ESRD on hemodialysis MWF, HIV, previous Covid infection, hypertension presents for blood transfusion and dialysis. Patient missed dialysis today and also was found of a hemoglobin of 6.9. Her PMD, Dr. Mike, sent her in for admission. He reports that she has a chronically elevated troponin and recent angio showed no evidence of vessel disease. Patient is in no distress. No bleeding noted. Recent transfusion. PMH: ESRD on hemodialysis, hypertension PSH: Vascular access port right chest Allergies: Reviewed Social Hx: Reviewed Allergies: ACETAMINOPHEN (Verified Allergy, Unknown, 11/06/20) CODEINE (Verified Allergy, Unknown, 01/21/21) TRAMADOL (Verified Allergy, Unknown, 11/06/20) COVID-19 Screening Contact w/high risk pt: No Experienced COVID-19 symptoms?: No COVID-19 Testing performed PLAN CONSULTANT: Yes COVID-19 Screening: Positive COVID-19 COVID-19 Testing Source: 12/22/20 Nursing Documentation-PMH Hx Hypertension: Yes Hx Diabetes: Yes Hx Dialysis: Yes Vital Signs Date Time Temp Pulse Resp B/P (MAP) Pulse Ox O2 Delivery O2 Flow Rate FiO2 01/21/21 18:10 97.5 65 20 120/80 (93) 94 Room Air General Appearance: WD/WN, moderate distress Lines, tubes and drains: peripheral HEENT: normocephalic, atraumatic Neck: non-tender, normal alignment Respiratory/Chest: Decreased breath sound over the bases Cardiovascular/Chest: normal rate, irregular beats Abdomen: non tender, no mass Neurologic: Lethargic somewhat encephalopathic . Laboratory Tests Test 01/21/21 19:41 01/21/21 20:06 White Blood Count 3.9 K/UL (4.8-10.8) L Red Blood Count 2.21 M/UL (4.20-5.40) L Hemoglobin 5.9 G/DL (12.0-16.0) *L Hematocrit 19.6 % (37.0-47.0) L Mean Corpuscular Volume 89 FL (80-99) Mean Corpuscular Hemoglobin 26.9 PG (27.0-31.0) L Mean Corpuscular Hemoglobin Concent 30.3 G/DL (32.0-36.0) L Red Cell Distribution Width 19.6 % (11.6-14.8) H Platelet Count 77 K/UL (150-450) L Mean Platelet Volume 7.1 FL (6.5-10.1) Neutrophils (%) (Auto) % (45.0-75.0) Lymphocytes (%) (Auto) % (20.0-45.0) Monocytes (%) (Auto) % (1.0-10.0) Eosinophils (%) (Auto) % (0.0-3.0) Basophils (%) (Auto) % (0.0-2.0) Differential Total Cells Counted 100 Neutrophils % (Manual) 50 % (45-75) Lymphocytes % (Manual) 41 % (20-45) Monocytes % (Manual) 5 % (1-10) Eosinophils % (Manual) 1 % (0-3) Basophils % (Manual) 0 % (0-2) Band Neutrophils 3 % (0-8) Platelet Estimate Decreased L Platelet Morphology Normal Hypochromasia 3+ Anisocytosis 2+ Sodium Level 135 MMOL/L (136-145) L Potassium Level 5.9 MMOL/L (3.5-5.1) H Chloride Level 102 MMOL/L (98-107) Carbon Dioxide Level 20 MMOL/L (21-32) L Anion Gap 13 mmol/L (5-15) Blood Urea Nitrogen 115 mg/dL (7-18) H Creatinine 14.8 MG/DL (0.55-1.30) H Estimated Glomerular Filtration Rate 3.0 mL/min (>60) Glucose Level 149 MG/DL (74-106) H Calcium Level 8.6 MG/DL (8.5-10.1) Phosphorus Level 5.8 MG/DL (2.5-4.9) H Magnesium Level 3.3 MG/DL (1.8-2.4) H Total Bilirubin 0.6 MG/DL (0.2-1.0) Aspartate Amino Transferase (AST) 17 U/L (15-37) Alanine Aminotransferase (ALT) 17 U/L (12-78) Alkaline Phosphatase 130 U/L (46-116) H Troponin I 0.000 ng/mL (0.000-0.056) Pro-B-Type Natriuretic Peptide 8630 pg/mL (0-125) H Total Protein 8.4 G/DL (6.4-8.2) H Albumin 2.9 G/DL (3.4-5.0) L Globulin 5.5 g/dL Albumin/Globulin Ratio 0.5 (1.0-2.7) L Prothrombin Time 11.0 SEC (9.30-11.50) Prothrombin Time INR 1.0 (0.9-1.1) Activated Partial Thromboplast Time 22 SEC (23-33) L Uric Acid Pending Iron Level Pending Unsaturated Iron Binding Pending Ferritin Pending Vitamin B12 Level Pending Folate Pending . Assessment/Plan This 60-year-old black female with right chest permacath on hemodialysis referred to our emergency room with severe anemia and hyperkalemia. Orders for stat dialysis and transfusion was given when the patient was in the emergency room. Patient was not transferred to regular floor until an hour ago, where the dialysis nurses currently present to dialyze the patient. Patient was transfused in the emergency room. Plan: Dialysis REGINE Continue to monitor hemoglobin hematocrit and electrolytes The blood pressure in check Per orders Juan Jose Robledo MD Jan 22, 2021 13:06
--- NOTE | 2021-01-22 15:44 | NUR ---
INSURANCE [employer]INICALS FAXED TO [facility] #[phone] fax# [phone]
--- NOTE | 2021-01-22 17:22 | NUR ---
Received report from previous RN. Pt awake and alert in bed. Pt recently medicated for pain. Per report pt had dialysis today and had 2L removed. Pt on RA. Last prior VS stable. Bed in lowest position. Side rail x3. Will continue to monitor.
[2021-01-22] MEDS: Renvela 800mg Pkt ORAL SCH (18:09)
[2021-01-22] MEDS: Docusate 100mg cap ORAL SCH (18:09)
[2021-01-22] MEDS: Sennosides 8.6mg tab ORAL SCH ×2 (18:09→18:17)
--- NOTE | 2021-01-22 19:15 | NUR ---
NURSE NOTES: Patient vitals stable at this time. RN received report from dayshift RN. Patient in bed. patient on room air. Patient bp high. RN checked in several spots. patient c/o chronic chest pain and requesting pain. RN reviewed chart and gave pain meds according to med rec. Patient bp high and prn meds given. RN will continue to monitor.
[2021-01-23] VITALS (9 sets, daily range): BP systolic 160–201; BP diastolic 82–103
[2021-01-23] MEDS: Morphine Sulfate 2mg/ml Inj(IV/IM USE ONLY) IVP PRN (01:26)
[2021-01-23] MEDS: HYDROcodone/Acetamin 10/325 tab ORAL PRN ×5 (03:02→22:06)
[2021-01-23 05:37] LABS: HEMATOCRIT 27.6 % (37.0-47.0); HEMOGLOBIN 8.9 G/DL (12.0-16.0); MEAN CORPUSCULAR VOLUME 87 FL (80-99); PLATELET COUNT 39 K/UL (150-450); RED BLOOD COUNT 3.17 M/UL (4.20-5.40); RED CELL DISTRIBUTION WIDTH 17.7 % (11.6-14.8)
[2021-01-23 05:56] LABS: ALANINE AMINOTRANSFERASE 15 U/L (12-78); ALBUMIN 2.7 G/DL (3.4-5.0); ALBUMIN/GLOBULIN RATIO 0.5 (1.0-2.7); ALKALINE PHOSPHATASE 125 U/L (46-116); ANION GAP 12 mmol/L (5-15); ASPARTATE AMINO TRANSFERASE 21 U/L (15-37); BILIRUBIN,TOTAL 0.4 MG/DL (0.2-1.0); BLOOD UREA NITROGEN 57 mg/dL (7-18); CALCIUM 7.6 MG/DL (8.5-10.1); CARBON DIOXIDE 23 MMOL/L (21-32); CHLORIDE 103 MMOL/L (98-107); CHOLESTEROL 132 MG/DL (< 200); CREATININE 8.9 MG/DL (0.55-1.30); GAMMA GLUTAMYL TRANSPEPTIDASE 21 U/L (5-85); HDL CHOLESTEROL 29 MG/DL (40-60); PHOSPHORUS 3.8 MG/DL (2.5-4.9); SODIUM 138 MMOL/L (136-145); TRIGLYCERIDES 129 MG/DL (30-150)
--- NOTE | 2021-01-23 07:13 | NUR ---
NURSE HAND-OFF REPORT: Important Events on Shift: Patient Status: Diet: Pending Orders: Pending Results/Labs: Pending MD notification: Latest Vital Signs: Temperature 97.5 , Pulse 84 , B/P 162 /82 , Respiratory Rate 20 , O2 SAT 97 , Room Air, O2 Flow Rate . Vital Sign Comment: EKG Rhythm: Sinus Rhythm Rhythm change?: N MD Notified?: - MD Response: Latest Alvarado Fall Score: 20 Fall Risk: Low Risk Safety Measures: Call light Within Reach, Bed Alarm Zone 1, Side Rails Side Rails x2, Bed position Low and Locked. Fall Precautions: Yellow Socks Yellow Gown Door Sign Patient Fall Education Report given to Moni .
[2021-01-23] MEDS: Sennosides 8.6mg tab ORAL SCH ×2 (08:27→18:30)
[2021-01-23] MEDS: Aspirin EC 81mg tab ORAL SCH (08:28)
[2021-01-23] MEDS: Docusate 100mg cap ORAL SCH ×2 (08:29→18:29)
[2021-01-23] MEDS: Renvela 800mg Pkt ORAL SCH ×3 (08:29→18:29)
[2021-01-23] MEDS: Zinc Sulfate 220mg ORAL SCH (08:30)
[2021-01-23] MEDS: Heparin 5000 units/ml inj SUBQ SCH (08:31)
--- NOTE | 2021-01-23 09:45 | NUR ---
PT NOTE Attempted to see patient for PT evaluation. Patient declining to participate with PT, states she just wants to sleep because she did not sleep well last night. Moni BARRY notified, will re-attempt later as schedule permits.
--- NOTE | 2021-01-23 11:54 | General Progress Note ---
Subjective Date patient seen: Jan 23, 2021 Time patient seen: 11:00 ROS Limited/Unobtainable: Yes Allergies: Coded Allergies: ACETAMINOPHEN (Verified Allergy, Unknown, 11/06/20) CODEINE (Verified Allergy, Unknown, 01/21/21) TRAMADOL (Verified Allergy, Unknown, 11/06/20) Subjective Denies chest pain, sob, nausea or emesis. Objective Last 24 Hour Vital Signs Date Time Temp Pulse Resp B/P (MAP) Pulse Ox O2 Delivery O2 Flow Rate FiO2 01/23/21 09:00 Room Air 01/23/21 08:00 87 01/23/21 08:00 97.3 81 20 170/89 (116) 96 01/23/21 04:00 84 01/23/21 04:00 97.5 84 20 162/82 (108) 97 01/23/21 02:45 160/91 (114) 01/23/21 01:56 98.8 01/23/21 01:56 98.8 01/23/21 01:37 201/95 (130) 01/23/21 01:26 201/95 01/23/21 00:04 199/103 01/23/21 00:00 86 01/23/21 00:00 97.7 74 20 199/103 (135) 100 01/22/21 22:14 97.7 01/22/21 21:53 197/104 01/22/21 21:00 Room Air 01/22/21 20:43 97.7 01/22/21 20:00 85 01/22/21 20:00 97.7 84 20 182/91 (121) 93 01/22/21 16:00 73 01/22/21 16:00 96.6 82 20 154/88 (110) 98 01/22/21 12:00 96.3 68 20 132/78 (96) 97 Intake and Output 01/22/21 01/23/21 19:00 07:00 Output Total 600 ml Balance -600 ml Output Urine Total 600 ml Laboratory Tests 01/22/21 14:04: POC Whole Blood Glucose 101 01/23/21 04:30: White Blood Count 4.0L, Red Blood Count 3.17L, Hemoglobin 8.9#L, Hematocrit 27.6#L, Mean Corpuscular Volume 87, Mean Corpuscular Hemoglobin 28.1, Mean Corpuscular Hemoglobin Concent 32.4, Red Cell Distribution Width 17.7H, Platelet Count 39L, Mean Platelet Volume 9.7, Neutrophils (%) (Auto) , Lymphocytes (%) (Auto) , Monocytes (%) (Auto) , Eosinophils (%) (Auto) , Basophils (%) (Auto) , Differential Total Cells Counted 100, Neutrophils % (Manual) 64, Lymphocytes % (Manual) 24, Monocytes % (Manual) 11H, Eosinophils % (Manual) 1, Basophils % (Manual) 0, Band Neutrophils 0, Platelet Estimate DecreasedL, Platelet Morphology Normal, Anisocytosis 1+, Sodium Level 138, Potassium Level 4.0, Chloride Level 103, Carbon Dioxide Level 23, Anion Gap 12, Blood Urea Nitrogen 57H, Creatinine 8.9H, Estimat Glomerular Filtration Rate 5.5, Glucose Level 86, Hemoglobin A1c 5.6, Uric Acid 2.8, Calcium Level 7.6L, Phosphorus Level 3.8, Magnesium Level 2.4, Total Bilirubin 0.4, Gamma Glutamyl Transpeptidase 21, Aspartate Amino Transf (AST/SGOT) 21, Alanine Aminotransferase (ALT/SGPT) 15, Alkaline Phosphatase 125H, Troponin I 0.002, C-Reactive Protein, Quantitative 0.8, Pro-B-Type Natriuretic Peptide 5672H, Total Protein 8.2, Albumin 2.7L, Globulin 5.5, Albumin/Globulin Ratio 0.5L, Triglycerides Level 129, Cholesterol Level 132, LDL Cholesterol 79, HDL Cholesterol 29L, Cholesterol/HDL Ratio 4.6H, Thyroid Stimulating Hormone (TSH) 1.813 Height (Feet): 5 Height (Inches): 8.00 Weight (Pounds): 180 General Appearance: WD/WN EENT: PERRL/EOMI Neck: non-tender Cardiovascular: normal rate Respiratory/Chest: lungs clear Abdomen: non tender Neurologic: building appraiser II-XII grossly normal Assessment/Plan Status: stable Assessment/Plan: 60 y/o F admitted to the hospital due to: # Acute on chronic anemia of CKD / ESRD s/p 2 units PRBC this admission. Monitor I/[place] [address] units TIW # ESRD on HD Dr. Salgado consulted HD done 01/22 # Anemia Will rule out LEÓN, GIB, vs ACD vs CKD related. Monitor H/H and any signs of blood loss. # HTN Resume home meds and defer to Dr. Salgado with whom I discussed the case today. # CAD Negative cardiac angiogram in the last 2 months Monitor on telemetry due to anemia # Physical deconditioning PT as tolerated Resident at [facility] # DVT ppx Heparin hold if platelets < 50 K ( discussed with pharmacy ) # GI ppx PPI in place Disposition: SNF when medically stable FULL CODE Catrachito Mike MD Jan 23, 2021 11:54
--- NOTE | 2021-01-23 13:06 | Nephrology Progress Note ---
Assessment/Plan Problem List: (1) ESRD on dialysis (2) Anemia (3) Chest pain (4) Anemia in chronic kidney disease (CKD) (5) Hypertensive kidney disease Plan January 23: Patient was dialyzed yesterday. Labs reviewed. Blood pressure out of control. Norvasc and hydralazine for blood pressure control ordered patient continue to be on as needed clonidine. Hemodialysis again tomorrow. Previously: Dialysis [facility] Continue to monitor hemoglobin hematocrit and electrolytes The blood pressure in check Per orders Subjective ROS Limited/Unobtainable: No Constitutional: Reports: malaise Objective Objective Last 24 Hour Vital Signs Date Time Temp Pulse Resp B/P (MAP) Pulse Ox O2 Delivery O2 Flow Rate FiO2 01/23/21 12:27 183/95 01/23/21 09:00 Room Air 01/23/21 08:00 87 01/23/21 08:00 97.3 81 20 170/89 (116) 96 01/23/21 04:00 84 01/23/21 04:00 97.5 84 20 162/82 (108) 97 01/23/21 02:45 160/91 (114) 01/23/21 01:56 98.8 01/23/21 01:56 98.8 01/23/21 01:37 201/95 (130) 01/23/21 01:26 201/95 01/23/21 00:04 199/103 01/23/21 00:00 86 01/23/21 00:00 97.7 74 20 199/103 (135) 100 01/22/21 22:14 97.7 01/22/21 21:53 197/104 01/22/21 21:00 Room Air 01/22/21 20:43 97.7 01/22/21 20:00 85 01/22/21 20:00 97.7 84 20 182/91 (121) 93 01/22/21 16:00 73 01/22/21 16:00 96.6 82 20 154/88 (110) 98 Intake and Output 0 01/22/21 01/23/21 19:00 07:00 Output Total 600 ml Balance -600 ml Output Urine Total 600 ml Current Medications Medications (Trade) Dose Ordered Sig/Maycol Route PRN Reason Start Time Stop Time Status Last Admin Dose Admin Acetaminophen (Tylenol) 650 mg Q4H PRN ORAL Mild Pain (Pain Scale 1-3) 01/21/21 20:45 02/20/21 20:44 Acetaminophen (Tylenol) 650 mg Q4H PRN ORAL Temp >100.5 01/21/21 20:45 02/20/21 20:44 Acetaminophen/ Hydrocodone Bitart ([place] 10/325) 1 tab Q4H PRN ORAL For Pain 01/21/21 20:45 01/28/21 20:44 01/23/21 12:28 Amlodipine Besylate (Norvasc) 10 mg DAILY ORAL 01/24/21 09:00 02/23/21 08:59 Aspirin (Ecotrin) 81 mg DAILY ORAL 01/22/21 09:00 03/08/21 08:59 01/23/21 08:28 Clonidine HCl (Catapres Tab) 0.1 mg Q4H PRN ORAL sbp > 160 mmHg 01/23/21 13:15 04/23/21 13:14 Dextrose (Dextrose 50%) 25 ml Q30M PRN IV Hypoglycemia 01/21/21 20:45 04/21/21 20:44 Dextrose (Dextrose 50%) 50 ml Q30M PRN IV Hypoglycemia 01/21/21 20:45 04/21/21 20:44 Docusate Sodium (Colace) 100 mg TWICE A DAY ORAL 01/22/21 18:00 02/21/21 17:59 01/23/21 08:29 Epoetin Mata (Epoetin Mata(ESRD on dialysis)) 10,000 unit THU-THU-THU SUBQ 01/23/21 21:00 04/23/21 20:59 Escitalopram Oxalate (Lexapro) 10 mg DAILY ORAL 01/22/21 09:00 02/21/21 08:59 01/23/21 08:29 Famotidine (Pepcid) 40 mg DAILY ORAL 01/22/21 09:00 04/22/21 08:59 01/23/21 08:27 Gabapentin (Neurontin) 100 mg DAILY ORAL 01/22/21 09:00 02/21/21 08:59 01/23/21 08:28 Hydralazine HCl (Apresoline) 25 mg Q8H ORAL 01/23/21 14:00 04/23/21 13:59 01/23/21 14:04 Morphine Sulfate (Morphine Sulfate) 2 mg EVERY 4 HOURS PRN IVP Moderate Pain (Pain Scale 4-6) 01/21/21 20:45 01/28/21 20:44 01/23/21 01:26 Nitroglycerin (Ntg) 0.4 mg Q5M PRN SL Prn Chest Pain 01/21/21 20:45 02/20/21 20:44 Pantoprazole (Protonix) 40 mg BID ORAL 01/21/21 21:30 02/21/21 08:59 01/23/21 08:28 Sennosides (Senokot) 8.6 mg TWICE A DAY ORAL 01/22/21 09:00 02/21/21 08:59 01/23/21 08:27 Sevelamer Carbonate (Renvela) 1,600 mg THREE TIMES A DAY ORAL 01/22/21 18:00 04/22/21 08:59 01/23/21 12:17 Zinc Sulfate (Zinc Sulfate) 220 mg DAILY ORAL 01/22/21 09:00 04/22/21 08:59 01/23/21 08:30 Laboratory Tests 01/22/21 14:04: POC Whole Blood Glucose 101 01/23/21 04:30: White Blood Count 4.0L, Red Blood Count 3.17L, Hemoglobin 8.9#L, Hematocrit 27.6#L, Mean Corpuscular Volume 87, Mean Corpuscular Hemoglobin 28.1, Mean Corpuscular Hemoglobin Concent 32.4, Red Cell Distribution Width 17.7H, Platelet Count 39L, Mean Platelet Volume 9.7, Neutrophils (%) (Auto) , Lymphocytes (%) (Auto) , Monocytes (%) (Auto) , Eosinophils (%) (Auto) , Basophils (%) (Auto) , Differential Total Cells Counted 100, Neutrophils % (Manual) 64, Lymphocytes % (Manual) 24, Monocytes % (Manual) 11H, Eosinophils % (Manual) 1, Basophils % (Manual) 0, Band Neutrophils 0, Platelet Estimate DecreasedL, Platelet Morphology Normal, Anisocytosis 1+, Reticulocyte Count [Pending], Sodium Level 138, Potassium Level 4.0, Chloride Level 103, Carbon Dioxide Level 23, Anion Gap 12, Blood Urea Nitrogen 57H, Creatinine 8.9H, Estimat Glomerular Filtration Rate 5.5, Glucose Level 86, Hemoglobin A1c 5.6, Uric Acid 2.8, Calcium Level 7.6L, Phosphorus Level 3.8, Magnesium Level 2.4, Total Bilirubin 0.4, Gamma Glutamyl Transpeptidase 21, Aspartate Amino Transf (AST/SGOT) 21, Alanine Aminotransferase (ALT/SGPT) 15, Alkaline Phosphatase 125H, Troponin I 0.002, C- Reactive Protein, Quantitative 0.8, Pro-B-Type Natriuretic Peptide 5672H, Total Protein 8.2, Albumin 2.7L, Globulin 5.5, Albumin/Globulin Ratio 0.5L, Triglycerides Level 129, Cholesterol Level 132, LDL Cholesterol 79, HDL Chol[place] rol 29L, Cholesterol/HDL Ratio 4.6H, Thyroid Stimulating Hormone (TSH) 1.813 Height (Feet): 5 Height (Inches): 8.00 Weight (Pounds): 180 General Appearance: no apparent distress, lethargic Cardiovascular: normal rate Respiratory/Chest: decreased breath sounds Abdomen: distended Juan Jose Robledo MD Jan 23, 2021 13:06
[2021-01-23] MEDS ORDERED: NIFEDIPINE ER60 M2 ORAL (13:51)
[2021-01-23 13:58] LABS: % IRON SATURATION 92 % (15-50); IRON 131 ug/dL (50-175); TOTAL IRON BINDING CAPACITY 143 ug/dL (250-450)
[2021-01-23] MEDS ORDERED: HydrALAZINE 25mg tab ORAL SCH (14:00)
--- NOTE | 2021-01-23 16:45 | NUR ---
CASE MANAGEMENT: REVIEW 01/23/2021 SI:Acute on chronic anemia of CKD / ESRD VS: T 97.7 HR 80 RR 22 B/P 183/95 SATS 96% ON RA LABS: WBC 4 BUN 57 CR 8.9 CA 7.6 ALP 125 BNP 5672 IS:PROTONIX PO BID ASA PO QD LEXAPRO PO QD GABAPENTIN PO QD NORVASC PO QD EPOETIN SUBQ MWF HYDRALAZINE PO Q8H SDU PLAN OF CARE: 01/24- HD
[2021-01-23] MEDS: HydrALAZINE 50mg tab ORAL SCH (18:30)
[2021-01-23] MEDS ORDERED: Epoetin Alfa-EPBX(ESRD on dialysis)2000 units/ml vial SUBQ SCH (21:00)
[2021-01-23] MEDS: Epoetin Alfa-EPBX(ESRD on dialysis)10,000 unit/ml vial SUBQ SCH (21:30)
[2021-01-24] VITALS (7 sets, daily range): BP systolic 143–191; BP diastolic 68–93
[2021-01-24] MEDS: HYDROcodone/Acetamin 10/325 tab ORAL PRN ×5 (02:17→22:28)
[2021-01-24] MEDS: HydrALAZINE 50mg tab ORAL SCH ×3 (06:11→22:26)
[2021-01-24 06:27] LABS: HEMATOCRIT 29.1 % (37.0-47.0); HEMOGLOBIN 9.3 G/DL (12.0-16.0); MEAN CORPUSCULAR VOLUME 88 FL (80-99); PLATELET COUNT 39 K/UL (150-450); RED BLOOD COUNT 3.32 M/UL (4.20-5.40); RED CELL DISTRIBUTION WIDTH 18.1 % (11.6-14.8); WHITE BLOOD COUNT 3.7 K/UL (4.8-10.8)
[2021-01-24 07:01] LABS: ALBUMIN 2.9 G/DL (3.4-5.0); ALBUMIN/GLOBULIN RATIO 0.5 (1.0-2.7); BILIRUBIN,TOTAL 0.3 MG/DL (0.2-1.0); CALCIUM 8.5 MG/DL (8.5-10.1); CREATININE 10.6 MG/DL (0.55-1.30); PHOSPHORUS 4.8 MG/DL (2.5-4.9); POTASSIUM 4.4 MMOL/L (3.5-5.1)
[2021-01-24] MEDS: Docusate 100mg cap ORAL SCH ×2 (09:54→18:00)
[2021-01-24] MEDS: Aspirin EC 81mg tab ORAL SCH (09:54)
[2021-01-24] MEDS: Renvela 800mg Pkt ORAL SCH ×3 (09:55→18:00)
[2021-01-24] MEDS: Zinc Sulfate 220mg ORAL SCH (09:55)
[2021-01-24] MEDS: Sennosides 8.6mg tab ORAL SCH ×2 (09:55→18:00)
--- NOTE | 2021-01-24 13:21 | Nephrology Progress Note ---
Assessment/Plan Problem List: (1) ESRD on dialysis (2) Anemia (3) Chest pain (4) Anemia in chronic kidney disease (CKD) (5) Hypertensive kidney disease Plan January 24: Patient due for dialysis today. Blood pressure medication adjusted. Labs reviewed. Stable from renal standpoint of view. Discussed with Dr. Mike. January 23: Patient was dialyzed yesterday. Labs reviewed. Blood pressure out of control. Norvasc and hydralazine for blood pressure control ordered patient continue to be on as needed clonidine. Hemodialysis again tomorrow. Previously: Dialysis [facility] Continue to monitor hemoglobin hematocrit and electrolytes The blood pressure in check Per orders Subjective ROS Limited/Unobtainable: No Constitutional: Reports: malaise Objective Objective Last 24 Hour Vital Signs Date Time Temp Pulse Resp B/P (MAP) Pulse Ox O2 Delivery O2 Flow Rate FiO2 01/24/21 12:00 97.0 73 16 158/89 (112) 96 01/24/21 12:00 77 01/24/21 09:55 72 167/82 01/24/21 09:30 97.2 72 18 167/82 (110) 96 01/24/21 09:00 Room Air 01/24/21 09:00 71 01/24/21 08:00 98.1 77 16 191/93 (125) 96 01/24/21 06:51 97.2 01/24/21 06:11 181/79 01/24/21 04:00 77 01/24/21 04:00 97.9 72 16 180/91 (120) 97 01/24/21 02:47 97.7 01/23/21 23:58 97.7 74 16 171/91 (117) 36 01/23/21 21:36 180/88 01/23/21 21:00 Room Air 01/23/21 20:00 80 01/23/21 20:00 98.1 75 20 180/88 (118) 96 01/23/21 18:30 171/88 01/23/21 16:00 74 01/23/21 16:00 97.5 73 21 171/88 (115) 96 01/23/21 14:04 186/84 01/23/21 14:04 80 186/84 Intake and Output 01/23/21 01/24/21 19:00 07:00 Intake Total 250 ml Balance 250 ml Intake Oral 250 ml # Voids 1 1 Current Medications Medications (Trade) Dose Ordered Sig/Maycol Route PRN Reason Start Time Stop Time Status Last Admin Dose Admin Acetaminophen (Tylenol) 650 mg Q4H PRN ORAL Mild Pain (Pain Scale 1-3) 01/21/21 20:45 02/20/21 20:44 Acetaminophen (Tylenol) 650 mg Q4H PRN ORAL Temp >100.5 01/21/21 20:45 02/20/21 20:44 Acetaminophen/ Hydrocodone Bitart ([place] 10/325) 1 tab Q4H PRN ORAL For Pain 01/21/21 20:45 01/28/21 20:44 01/24/21 10:05 Amlodipine Besylate (Norvasc) 10 mg DAILY ORAL 01/24/21 09:00 02/23/21 08:59 01/24/21 09:55 Aspirin (Ecotrin) 81 mg DAILY ORAL 01/22/21 09:00 03/08/21 08:59 01/24/21 09:54 Clonidine HCl (Catapres Tab) 0.1 mg Q4H PRN ORAL sbp > 160 mmHg 01/23/21 13:15 04/23/21 13:14 01/23/21 21:36 Dextrose (Dextrose 50%) 25 ml Q30M PRN IV Hypoglycemia 01/21/21 20:45 04/21/21 20:44 Dextrose (Dextrose 50%) 50 ml Q30M PRN IV Hypoglycemia 01/21/21 20:45 04/21/21 20:44 Docusate Sodium (Colace) 100 mg TWICE A DAY ORAL 01/22/21 18:00 02/21/21 17:59 01/24/21 09:54 Epoetin Mata (Epoetin Mata(ESRD on dialysis)) 10,000 unit THU-THU-THU SUBQ 01/23/21 21:00 04/23/21 20:59 01/23/21 21:30 Escitalopram Oxalate (Lexapro) 10 mg DAILY ORAL 01/22/21 09:00 02/21/21 08:59 01/24/21 09:54 Famotidine (Pepcid) 40 mg DAILY ORAL 01/22/21 09:00 04/22/21 08:59 01/24/21 09:54 Gabapentin (Neurontin) 100 mg DAILY ORAL 01/22/21 09:00 02/21/21 08:59 01/24/21 09:54 Hydralazine HCl (Apresoline) 50 mg Q8HR ORAL 01/23/21 17:15 04/23/21 17:14 01/24/21 06:11 Morphine Sulfate (Morphine Sulfate) 2 mg EVERY 4 HOURS PRN IVP Moderate Pain (Pain Scale 4-6) 01/21/21 20:45 01/28/21 20:44 01/23/21 01:26 Nitroglycerin (Ntg) 0.4 mg Q5M PRN SL Prn Chest Pain 01/21/21 20:45 02/20/21 20:44 Pantoprazole (Protonix) 40 mg BID ORAL 01/21/21 21:30 02/21/21 08:59 01/24/21 09:54 Sennosides (Senokot) 8.6 mg TWICE A DAY ORAL 01/22/21 09:00 02/21/21 08:59 01/24/21 09:55 Sevelamer Carbonate (Renvela) 1,600 mg THREE TIMES A DAY ORAL 01/22/21 18:00 04/22/21 08:59 01/24/21 09:55 Zinc Sulfate (Zinc Sulfate) 220 mg DAILY ORAL 01/22/21 09:00 04/22/21 08:59 01/24/21 09:55 Laboratory Tests 01/24/21 03:46: White Blood Count 3.7L, Red Blood Count 3.32L, Hemoglobin 9.3L, Hematocrit 29.1L , Mean Corpuscular Volume 88, Mean Corpuscular Hemoglobin 28.0, Mean Corpuscular Hemoglobin Concent 32.0, Red Cell Distribution Width 18.1H, Platelet Count 39L, Mean Platelet Volume 10.8H, Neutrophils (%) (Auto) , Lymphocytes (%) (Auto) , Monocytes (%) (Auto) , Eosinophils (%) (Auto) , Basophils (%) (Auto) , Sodium Level 136, Potassium Level 4.4, Chloride Level 100, Carbon Dioxide Level 23, Anion Gap 13, Blood Urea Nitrogen 68H, Creatinine 10.6H, Estimat Glomerular Filtration Rate 4.5, Glucose Level 72L, Calcium Level 8.5, Phosphorus Level 4.8, Magnesium Level 2.7H, Total Bilirubin 0.3, Aspartate Amino Transf (AST/SGOT) 24, Alanine Aminotransferase (ALT/SGPT) 18, Alkaline Phosphatase 132H, C-Reactive Protein, Quantitative < 0.4, Pro-B-Type Natriuretic Peptide 7549H, Total Protein 8.6H, Albumin 2.9L, Globulin 5.7, Albumin/Globulin Ratio 0.5L Height (Feet): 5 Height (Inches): 8.00 Weight (Pounds): 180 General Appearance: no apparent distress Cardiovascular: normal rate Respiratory/Chest: decreased breath sounds Abdomen: soft Juan Jose Robledo MD Jan 24, 2021 13:21
--- NOTE | 2021-01-24 13:42 | NUR ---
RD ASSESSMENT & RECOMMENDATIONS SEE CARE ACTIVITY FOR COMPLETE ASSESSMENT DAILY ESTIMATED NEEDS: Needs based on ESRD+HD, 60kg abw 25-30 kcals/kg 2666-0829 total kcals 1.2-1.8 g protein/kg 72-108 g total protein 20-22 mL/kg 1019-1753 total fluid mLs NUTRITION DIAGNOSIS: Altered nutrition related lab values R/T ESRD as evidenced by elev creat (10.6), elev BNP (7549) CURRENT DIET:RENAL PO DIET RECOMMENDATIONS: RENAL/ texture as tolerated ADDITIONAL RECOMMENDATIONS: * Calibrated bedscale wt * Monitor lytes- ESRD, K and phos wnl at this time * Nephrovite x 1 * DC ZnSO4: without wounds, prolonged use of ZnSO4 can cause Cu deficiency * Nepro x 1 w/ variable intake (425kcal/19g prot)
--- NOTE | 2021-01-24 13:46 | General Progress Note ---
Subjective Date patient seen: Jan 24, 2021 Time patient seen: 14:00 ROS Limited/Unobtainable: No Allergies: Coded Allergies: ACETAMINOPHEN (Verified Allergy, Unknown, 11/06/20) CODEINE (Verified Allergy, Unknown, 01/21/21) TRAMADOL (Verified Allergy, Unknown, 11/06/20) Subjective Denies chest pain, sob, nausea or emesis. Objective Last 24 Hour Vital Signs Date Time Temp Pulse Resp B/P (MAP) Pulse Ox O2 Delivery O2 Flow Rate FiO2 01/24/21 12:00 97.0 73 16 158/89 (112) 96 01/24/21 12:00 77 01/24/21 09:55 72 167/82 01/24/21 09:30 97.2 72 18 167/82 (110) 96 01/24/21 09:00 Room Air 01/24/21 09:00 71 01/24/21 08:00 98.1 77 16 191/93 (125) 96 01/24/21 06:51 97.2 01/24/21 06:11 181/79 01/24/21 04:00 77 01/24/21 04:00 97.9 72 16 180/91 (120) 97 01/24/21 02:47 97.7 01/23/21 23:58 97.7 74 16 171/91 (117) 36 01/23/21 21:36 180/88 01/23/21 21:00 Room Air 01/23/21 20:00 80 01/23/21 20:00 98.1 75 20 180/88 (118) 96 01/23/21 18:30 171/88 01/23/21 16:00 74 01/23/21 16:00 97.5 73 21 171/88 (115) 96 01/23/21 14:04 186/84 01/23/21 14:04 80 186/84 Intake and Output 01/23/21 01/24/21 19:00 07:00 Intake Total 250 ml Balance 250 ml Intake Oral 250 ml # Voids 1 1 Laboratory Tests 01/24/21 03:46: White Blood Count 3.7L, Red Blood Count 3.32L, Hemoglobin 9.3L, Hematocrit 29.1L , Mean Corpuscular Volume 88, Mean Corpuscular Hemoglobin 28.0, Mean Corpuscular Hemoglobin Concent 32.0, Red Cell Distribution Width 18.1H, Platelet Count 39L, Mean Platelet Volume 10.8H, Neutrophils (%) (Auto) , Lymphocytes (%) (Auto) , Mo nocytes (%) (Auto) , Eosinophils (%) (Auto) , Basophils (%) (Auto) , Sodium Level 136, Potassium Level 4.4, Chloride Level 100, Carbon Dioxide Level 23, Anion Gap 13, Blood Urea Nitrogen 68H, Creatinine 10.6H, Estimat Glomerular Filtration Rate 4.5, Glucose Level 72L, Calcium Level 8.5, Phosphorus Level 4.8, Magnesium Level 2.7H, Total Bilirubin 0.3, Aspartate Amino Transf (AST/SGOT) 24, Alanine Aminotransferase (ALT/SGPT) 18, Alkaline Phosphatase 132H, C-Reactive Protein, Quantitative < 0.4, Pro-B-Type Natriuretic Peptide 7549H, Total Protein 8.6H, Albumin 2.9L, Globulin 5.7, Albumin/Globulin Ratio 0.5L Height (Feet): 5 Height (Inches): 8.00 Weight (Pounds): 180 General Appearance: WD/WN EENT: PERRL/EOMI Neck: non-tender Cardiovascular: normal peripheral pulses Respiratory/Chest: lungs clear Extremities: normal range of motion Neurologic: supervisor lens generating II-XII grossly normal Assessment/Plan Status: stable Assessment/Plan: 60 y/o F admitted to the hospital due to: # Acute on chronic anemia of CKD / ESRD s/p 2 units PRBC this admission. Monitor I/[place] [address] units TIW # ESRD on HD Dr. Salgado consulted HD done 01/22 HD done 01/24 # Anemia Will rule out LEÓN, GIB, vs ACD vs CKD related. No acute sign of Iron Deficiency anemia, PENDING FOBT. Monitor H/H and any signs of blood loss. # HTN Resume home meds and defer to Dr. Salgado with whom I discussed the case today. Hydralazine adjusted. Monitor BP and if better controlled, goal to dc tomorrow 01/25 # CAD Negative cardiac angiogram in the last 2 months Monitor on telemetry due to anemia # Physical deconditioning PT as tolerated Resident at [facility] # DVT ppx Heparin hold if platelets < 50 K ( discussed with pharmacy ) # GI ppx PPI in place Disposition: SNF when medically stable ( [facility] ) FULL CODE Catrachito Mike MD Jan 24, 2021 13:46
--- NOTE | 2021-01-24 15:11 | NUR ---
INSURANCE CLINICALS FAXED TO [facility] #[phone] fax# [phone]
[2021-01-24] MEDS ORDERED: DiphenhydrAMINE 50mg/ml Inj IVP PRN (18:45)
--- NOTE | 2021-01-24 19:13 | NUR ---
Pt received dialysis today and 2L removed. Pt fecal occult blood was sent down. Results pending. Pt in NAD. Report given to ASHA Staton. Care continues.
--- NOTE | 2021-01-24 19:30 | NUR ---
NURSE NOTES: RN received report from day RN. Patient in bed resting. Patients bp high but will give night meds to control bp. Patient complaining of throat pain. Rn will notify MD for throat spray. RN will continue to monitor.
--- NOTE | 2021-01-24 19:50 | NUR ---
NURSE NOTES: RN spoke to Dr. Mike. Orders given for throat spray. RN will administer so the patient can have some relief.
[2021-01-24] MEDS ORDERED: Chloraseptic Spray 20mL Bottle ORAL PRN (21:00)
[2021-01-25] VITALS (7 sets, daily range): BP systolic 133–177; BP diastolic 66–81
--- NOTE | 2021-01-25 00:40 | NUR ---
NURSE NOTES: Patient resting. Patient bp elevated. patient given PRN clonidine to decrease bp. RN will continue to monitor.
[2021-01-25 05:58] LABS: HEMATOCRIT 29.5 % (37.0-47.0); HEMOGLOBIN 9.3 G/DL (12.0-16.0); MEAN CORPUSCULAR VOLUME 88 FL (80-99); PLATELET COUNT 37 K/UL (150-450); RED BLOOD COUNT 3.35 M/UL (4.20-5.40); WHITE BLOOD COUNT 3.2 K/UL (4.8-10.8)
[2021-01-25 06:06] LABS: ALANINE AMINOTRANSFERASE 23 U/L (12-78); ALBUMIN 3.1 G/DL (3.4-5.0); ALBUMIN/GLOBULIN RATIO 0.6 (1.0-2.7); ALKALINE PHOSPHATASE 138 U/L (46-116); ASPARTATE AMINO TRANSFERASE 27 U/L (15-37); BILIRUBIN,TOTAL 0.2 MG/DL (0.2-1.0); BLOOD UREA NITROGEN 73 mg/dL (7-18); CALCIUM 8.5 MG/DL (8.5-10.1); CARBON DIOXIDE 21 MMOL/L (21-32); CHLORIDE 101 MMOL/L (98-107); CREATININE 10.6 MG/DL (0.55-1.30); PHOSPHORUS 5.1 MG/DL (2.5-4.9); POTASSIUM 4.9 MMOL/L (3.5-5.1); SODIUM 138 MMOL/L (136-145)
[2021-01-25] MEDS: HydrALAZINE 50mg tab ORAL SCH ×3 (06:11→22:01)
[2021-01-25] MEDS: HYDROcodone/Acetamin 10/325 tab ORAL PRN ×4 (06:15→22:02)
--- NOTE | 2021-01-25 06:30 | NUR ---
NURSE NOTES: Patient yelling because she wants grits to eat. RN reassured patient that breakfast will arrive shortly. RN will continue to monitor.
[2021-01-25] MEDS: Renvela 800mg Pkt ORAL SCH ×3 (08:17→17:50)
[2021-01-25] MEDS: Aspirin EC 81mg tab ORAL SCH (08:17)
[2021-01-25] MEDS: Sennosides 8.6mg tab ORAL SCH ×2 (08:19→17:50)
[2021-01-25] MEDS: Docusate 100mg cap ORAL SCH ×2 (08:20→17:50)
[2021-01-25] MEDS: Zinc Sulfate 220mg ORAL SCH (08:21)
[2021-01-25] MEDS: Lisinopril 10mg tab ORAL SCH (10:16)
--- NOTE | 2021-01-25 10:35 | Nephrology Progress Note ---
Assessment/Plan Problem List: (1) ESRD on dialysis (2) Anemia (3) Chest pain (4) Anemia in chronic kidney disease (CKD) (5) Hypertensive kidney disease Plan January 25: Patient dialyzed yesterday. Labs reviewed. The blood pressure medication adjusted. Due for dialysis tomorrow. January 24: Patient due for dialysis today. Blood pressure medication adjusted. Labs reviewed. Stable from renal standpoint of view. Discussed with Dr. Mike. January 23: Patient was dialyzed yesterday. Labs reviewed. Blood pressure out of control. Norvasc and hydralazine for blood pressure control ordered patient continue to be on as needed clonidine. Hemodialysis again tomorrow. Previously: Dialysis [facility] Continue to monitor hemoglobin hematocrit and electrolytes The blood pressure in check Per orders Subjective ROS Limited/Unobtainable: No Constitutional: Reports: malaise Objective Objective Last 24 Hour Vital Signs Date Time Temp Pulse Resp B/P (MAP) Pulse Ox O2 Delivery O2 Flow Rate FiO2 01/25/21 10:16 177/76 01/25/21 09:00 Room Air 01/25/21 08:21 88 177/76 01/25/21 08:00 97.9 89 18 177/76 (109) 99 01/25/21 08:00 86 01/25/21 06:45 97.7 01/25/21 06:11 177/91 01/25/21 04:00 97.7 94 16 168/77 (107) 98 01/25/21 03:56 87 01/25/21 00:00 89 01/24/21 23:58 179/81 01/24/21 23:49 97.9 89 16 179/81 (113) 98 01/24/21 22:58 97.8 01/24/21 22:26 160/94 01/24/21 21:00 Room Air 01/24/21 20:00 90 01/24/21 20:00 97.8 76 16 161/68 (99) 99 01/24/21 16:00 73 01/24/21 16:00 97.0 72 16 143/73 (96) 98 01/24/21 14:33 158/89 01/24/21 12:00 97.0 73 16 158/89 (112) 96 01/24/21 12:00 77 Intake and Output 01/24/21 01/25/21 19:00 07:00 Intake Total 200 ml Balance 200 ml Intake Oral 200 ml # Voids 2 1 # Bowel Movements 1 Current Medications Medications (Trade) Dose Ordered Sig/Maycol Route PRN Reason Start Time Stop Time Status Last Admin Dose Admin Acetaminophen (Tylenol) 650 mg Q4H PRN ORAL Mild Pain (Pain Scale 1-3) 01/21/21 20:45 02/20/21 20:44 Acetaminophen (Tylenol) 650 mg Q4H PRN ORAL Temp >100.5 01/21/21 20:45 02/20/21 20:44 Acetaminophen/ Hydrocodone Bitart ([place] 10/325) 1 tab Q4H PRN ORAL For Pain 01/21/21 20:45 01/28/21 20:44 01/25/21 10:18 Amlodipine Besylate (Norvasc) 10 mg DAILY ORAL 01/24/21 09:00 02/23/21 08:59 01/25/21 08:21 Aspirin (Ecotrin) 81 mg DAILY ORAL 01/22/21 09:00 03/08/21 08:59 01/25/21 08:17 Clonidine HCl (Catapres Tab) 0.1 mg Q4H PRN ORAL sbp > 160 mmHg 01/23/21 13:15 04/23/21 13:14 01/24/21 23:58 Dextrose (Dextrose 50%) 25 ml Q30M PRN IV Hypoglycemia 01/21/21 20:45 04/21/21 20:44 Dextrose (Dextrose 50%) 50 ml Q30M PRN IV Hypoglycemia 01/21/21 20:45 04/21/21 20:44 Diphenhydramine HCl (Benadryl) 25 mg Q6H PRN IVP Itching 01/24/21 18:45 02/23/21 18:44 01/24/21 22:26 Docusate Sodium (Colace) 100 mg TWICE A DAY ORAL 01/22/21 18:00 02/21/21 17:59 01/25/21 08:20 Epoetin Mata (Epoetin Mata(ESRD on dialysis)) 10,000 unit THU-THU-THU SUBQ 01/23/21 21:00 04/23/21 20:59 01/23/21 21:30 Escitalopram Oxalate (Lexapro) 10 mg DAILY ORAL 01/22/21 09:00 02/21/21 08:59 01/25/21 08:20 Famotidine (Pepcid) 40 mg DAILY ORAL 01/22/21 09:00 04/22/21 08:59 01/25/21 08:17 Gabapentin (Neurontin) 100 mg DAILY ORAL 01/22/21 09:00 02/21/21 08:59 01/25/21 08:17 Hydralazine HCl (Apresoline) 75 mg Q8HR ORAL 01/24/21 14:00 04/23/21 17:14 01/25/21 06:11 Lisinopril (ZestriL) 10 mg DAILY ORAL 01/25/21 09:00 02/24/21 08:59 01/25/21 10:16 Morphine Sulfate (Morphine Sulfate) 2 mg EVERY 4 HOURS PRN IVP Moderate Pain (Pain Scale 4-6) 01/21/21 20:45 01/28/21 20:44 01/23/21 01:26 Nitroglycerin (Ntg) 0.4 mg Q5M PRN SL Prn Chest Pain 01/21/21 20:45 02/20/21 20:44 Pantoprazole (Protonix) 40 mg BID ORAL 01/21/21 21:30 02/21/21 08:59 01/25/21 08:18 Phenol/Menthol (Chloraseptic) 1 spray Q3H PRN ORAL For Pain 01/24/21 21:00 04/24/21 20:59 01/24/21 20:23 Sennosides (Senokot) 8.6 mg TWICE A DAY ORAL 01/22/21 09:00 02/21/21 08:59 01/25/21 08:19 Sevelamer Carbonate (Renvela) 1,600 mg THREE TIMES A DAY ORAL 01/22/21 18:00 04/22/21 08:59 01/25/21 08:17 Zinc Sulfate (Zinc Sulfate) 220 mg DAILY ORAL 01/22/21 09:00 04/22/21 08:59 01/25/21 08:21 Laboratory Tests 01/24/21 14:52: Stool Occult Blood Positive 01/25/21 03:10: White Blood Count 3.2L, Red Blood Count 3.35L, Hemoglobin 9.3L, Hematocrit 29.5L , Mean Corpuscular Volume 88, Mean Corpuscular Hemoglobin 27.7, Mean Corpuscular Hemoglobin Concent 31.4L, Red Cell Distribution Width 18.0H, Platelet Count 37L, Mean Platelet Volume 9.7, Neutrophils (%) (Auto) , Lymphocytes (%) (Auto) , Monocytes (%) (Auto) , Eosinophils (%) (Auto) , Basophils (%) (Auto) , Differential Total Cells Counted 100, Neutrophils % (Manual) 58, Lymphocytes % (Manual) 26, Monocytes % (Manual) 12H, Eosinophils % (Manual) 0, Basophils % (Manual) 0, Band Neutrophils 4, Platelet Estimate DecreasedL, Platelet Morphology Normal, Hypochromasia 1+, Anisocytosis 1+ 01/25/21 04:00: Sodium Level 138, Potassium Level 4.9, Chloride Level 101, Carbon Dioxide Level 21, Blood Urea Nitrogen 73H, Creatinine 10.6H, Estimat Glomerular Filtration Rate 4.5, Glucose Level 68L, Calcium Level 8.5, Phosphorus Level 5.1H, Total Bilirubin 0.2, Aspartate Amino Transf (AST/SGOT) 27, Alanine Aminotransferase ( ALT/SGPT) 23, Alkaline Phosphatase 138H, Total Protein 8.2, Albumin 3.1L, Globulin 5.1, Albumin/Globulin Ratio 0.6L Height (Feet): 5 Height (Inches): 8.00 Weight (Pounds): 180 General Appearance: no apparent distress Cardiovascular: normal rate Respiratory/Chest: decreased breath sounds Abdomen: distended Juan Jose Robledo MD Jan 25, 2021 10:35
--- NOTE | 2021-01-25 12:28 | NUR ---
0715: Report received from previous RN. Pt in bed in NAD. Will continue to monitor. 0800: Pt IV found in bed. Will attempt for another IV. 1030: Another IV was placed and when RN returned to room pt had pulled out IV. Linens changed. Bed in lowest position. Side rail x3. Bed alarm on. Will continue to monitor. 1200: Pt given lunch. Pt remains in NAD. VSS at this time.
--- NOTE | 2021-01-25 13:05 | NUR ---
INSURANCE CLINICALS FAXED TO [facility] T: [phone] F: [phone]
--- NOTE | 2021-01-25 13:32 | General Progress Note ---
Subjective Date patient seen: Jan 25, 2021 Time patient seen: 13:30 ROS Limited/Unobtainable: No Allergies: Coded Allergies: ACETAMINOPHEN (Verified Allergy, Unknown, 11/06/20) CODEINE (Verified Allergy, Unknown, 01/21/21) TRAMADOL (Verified Allergy, Unknown, 11/06/20) Subjective Denies chest pain, sob, nausea or emesis. Objective Last 24 Hour Vital Signs Date Time Temp Pulse Resp B/P (MAP) Pulse Ox O2 Delivery O2 Flow Rate FiO2 01/25/21 12:00 90 01/25/21 12:00 98.2 91 18 156/73 (100) 99 01/25/21 10:16 177/76 01/25/21 09:00 Room Air 01/25/21 08:21 88 177/76 01/25/21 08:00 97.9 89 18 177/76 (109) 99 01/25/21 08:00 86 01/25/21 06:45 97.7 01/25/21 06:11 177/91 01/25/21 04:00 97.7 94 16 168/77 (107) 98 01/25/21 03:56 87 01/25/21 00:00 89 01/24/21 23:58 179/81 01/24/21 23:49 97.9 89 16 179/81 (113) 98 01/24/21 22:58 97.8 01/24/21 22:26 160/94 01/24/21 21:00 Room Air 01/24/21 20:00 90 01/24/21 20:00 97.8 76 16 161/68 (99) 99 01/24/21 16:00 73 01/24/21 16:00 97.0 72 16 143/73 (96) 98 01/24/21 14:33 158/89 Intake and Output 01/24/21 01/25/21 19:00 07:00 Intake Total 200 ml Balance 200 ml Intake Oral 200 ml # Voids 2 1 # Bowel Movements 1 Laboratory Tests 01/24/21 14:52: Stool Occult Blood Positive 01/25/21 03:10: White Blood Count 3.2L, Red Blood Count 3.35L, Hemoglobin 9.3L, Hematocrit 29.5L , Mean Corpuscular Volume 88, Mean Corpuscular Hemoglobin 27.7, Mean Corpuscular Hemoglobin Concent 31.4L, Red Cell Distribution Width 18.0H, Platelet Count 37L, Mean Platelet Volume 9.7, Neutrophils (%) (Auto) , Lymphocytes (%) (Auto) , Monocytes (%) (Auto) , Eosinophils (%) (Auto) , Basophils (%) (Auto) , Differential Total Cells Counted 100, Neutrophils % (Manual) 58, Lymphocytes % (Manual) 26, Monocytes % (Manual) 12H, Eosinophils % (Manual) 0, Basophils % (Manual) 0, Band Neutrophils 4, Platelet Estimate DecreasedL, Platelet Morphology Normal, Hypochromasia 1+, Anisocytosis 1+ 01/25/21 04:00: Sodium Level 138, Potassium Level 4.9, Chloride Level 101, Carbon Dioxide Level 21, Blood Urea Nitrogen 73H, Creatinine 10.6H, Estimat Glomerular Filtration Rate 4.5, Glucose Level 68L, Calcium Level 8.5, Phosphorus Level 5.1H, Total Bilirubin 0.2, Aspartate Amino Transf (AST/SGOT) 27, Alanine Aminotransferase (ALT/SGPT) 23, Alkaline Phosphatase 138H, Total Protein 8.2, Albumin 3.1L, Globulin 5.1, Albumin/Globulin Ratio 0.6L Height (Feet): 5 Height (Inches): 8.00 Weight (Pounds): 180 General Appearance: WD/WN EENT: PERRL/EOMI Neck: non-tender Cardiovascular: normal peripheral pulses Respiratory/Chest: lungs clear Abdomen: non tender Extremities: normal range of motion 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 [place] I/[place] [address] [place]W # ESRD on HD Dr. Salgado consulted HD done 01/22 HD done 01/24 Planned HD for 01/26 AM # Anemia Will rule out LEÓN, GIB, vs ACD vs CKD related. No acute sign of Iron Deficiency anemia. Monitor H/H and any signs of blood loss. # HTN Resume home meds and defer to Dr. Salgado with whom I discussed the case today. Hydralazine adjusted. Monitor BP and if better controlled, goal to dc tomorrow 01/25 # CAD Negative cardiac angiogram in the last 2 months Monitor on telemetry due to anemia # Physical deconditioning PT as tolerated Resident at [facility] # DVT ppx Heparin hold if platelets < 50 K ( discussed with pharmacy ) # GI ppx PPI in place Disposition: SNF when medically stable ( [facility] ) PLAN FOR DISCHARGE TOMORROW 01/26 after HD is completed. Discussed with Dr. Salgado. FULL CODE Catrachito Miek MD Jan 25, 2021 13:32
--- NOTE | 2021-01-25 14:14 | Cardiology Report ---
APPROVED REPORT EKG Measurement Heart [id number] <Conclusion> Normal sinus rhythm Prolonged QT Abnormal ECG
--- NOTE | 2021-01-25 14:55 | NUR ---
*-*DISCHARGE PLANNING*-* PATIENT HAS BEEN ACCEPTED BACK TO: [facility] P: [phone] ROOM# 28.B ~~~~~~~~~~~~~~~~~~~NO DISCHARGE ORDER YET~~~~~~~ Addendum: 01/25/21 at 1714 by MELINDA CARLIN CM DISREGARD NOTE ABOVE
[2021-01-25] MEDS ORDERED: APRESOLINE50 MG ORAL (16:24)
[2021-01-25] MEDS ORDERED: RETACRIT10000 UNIT SUBQ (16:24)
[2021-01-25] MEDS ORDERED: ZESTRIL10 M1 ORAL (16:24)
[2021-01-25] MEDS ORDERED: COLACE100 MG ORAL (16:24)
[2021-01-25] MEDS ORDERED: RENVELA0.8 GM ORAL (16:24)
--- NOTE | 2021-01-25 17:10 | NUR ---
*-*DISCHARGE PLANNING*-* PATIENT HAS BEEN ACCEPTED BACK TO: [facility] P: [phone] ROOM# 28.B ~~~~~~~~~~~~~~DISCHARGE PLAN IS FOR TOMORROW 01/25/21~~~~~~~~~~~~~
--- NOTE | 2021-01-25 17:14 | NUR ---
*-*DISCHARGE PLANNING*-* PATIENT HAS BEEN ACCEPTED BACK TO: [facility] P: [phone] ROOM# 28.B ~~~~~~~~~DISCHARGE PLAN IS FOR TOMORROW 01/25/21~~~~~NURSE CAN SET TRANSPORTATION~~~~~~
[2021-01-25] MEDS: Epoetin Alfa-EPBX(ESRD on dialysis)10,000 unit/ml vial SUBQ SCH (21:05)
[2021-01-26 04:00] VITALS: BP 170/91
[2021-01-26] MEDS: HydrALAZINE 50mg tab ORAL SCH (06:04)
--- NOTE | 2021-01-26 07:00 | NUR ---
NURSE NOTES: received patient report from [id number]
--- NOTE | 2021-01-26 07:05 | NUR ---
NURSE NOTES: received patient report from dereje dominguez. patient is on bed awake, HD scheduled today. HD RN at bedside prepping for procedure. no acute events reported last night, not in acute distress. for discharge today. will arrange transpo going to [facility]. bed is low and locked for safety. will follow plan of care.
[2021-01-26 08:00] VITALS: BP 154/87
[2021-01-26] MEDS: Docusate 100mg cap ORAL SCH (08:45)
[2021-01-26] MEDS: Aspirin EC 81mg tab ORAL SCH (08:45)
[2021-01-26] MEDS: Lisinopril 10mg tab ORAL SCH (08:45)
[2021-01-26] MEDS: Sennosides 8.6mg tab ORAL SCH (08:45)
[2021-01-26] MEDS: Zinc Sulfate 220mg ORAL SCH (08:45)
[2021-01-26] MEDS: Renvela 800mg Pkt ORAL SCH ×2 (08:46→12:34)
--- NOTE | 2021-01-26 09:30 | NUR ---
NURSE NOTES: left a message to cathryn (daughter) regarding patients discharge today.
[2021-01-26] MEDS: HYDROcodone/Acetamin 10/325 tab ORAL PRN (10:52)
[2021-01-26 11:31] VITALS: BP 143/52
--- NOTE | 2021-01-26 12:30 | NUR ---
NURSE NOTES: attempted to call again cathryn to let her know of the discharge today, savi tran son (young) picked up the phone and stated that her mom is still asleep.
--- NOTE | 2021-01-26 12:41 | Nephrology Progress Note ---
Assessment/Plan Problem List: (1) ESRD on dialysis (2) Anemia (3) Chest pain (4) Anemia in chronic kidney disease (CKD) (5) Hypertensive kidney disease Plan January 26: Dialyzed this morning. Medication list reviewed. Stable for discharge. Next dialysis Thursday as an outpatient. January 25: Patient dialyzed yesterday. Labs reviewed. The blood pressure medication adjusted. Due for dialysis tomorrow. January 24: Patient due for dialysis today. Blood pressure medication adjusted. Labs reviewed. Stable from renal standpoint of view. Discussed with Dr. Mike. January 23: Patient was dialyzed yesterday. Labs reviewed. Blood pressure out of control. Norvasc and hydralazine for blood pressure control ordered patient continue to be on as needed clonidine. Hemodialysis again tomorrow. Previously: Dialysis [facility] Continue to monitor hemoglobin hematocrit and electrolytes The blood pressure in check Per orders Subjective ROS Limited/Unobtainable: No Objective Objective Last 24 Hour Vital Signs Date Time Temp Pulse Resp B/P (MAP) Pulse Ox O2 Delivery O2 Flow Rate FiO2 01/26/21 11:44 80 01/26/21 11:31 97.9 86 19 143/52 (82) 99 01/26/21 09:00 Room Air 01/26/21 08:45 154/87 01/26/21 08:45 78 154/87 01/26/21 08:00 98.2 78 19 154/87 (109) 99 01/26/21 07:42 77 01/26/21 06:04 170/91 01/26/21 04:00 97.9 75 18 170/91 (117) 96 01/26/21 04:00 81 01/26/21 00:00 81 01/25/21 23:54 98.1 85 18 133/66 (88) 97 01/25/21 22:32 98.0 01/25/21 22:01 168/81 01/25/21 21:31 97.7 84 20 168/81 (110) 99 01/25/21 21:00 Room Air 01/25/21 20:00 98.3 84 18 168/81 (110) 96 01/25/21 20:00 82 01/25/21 16:00 85 01/25/21 16:00 98.2 85 18 155/73 (100) 100 01/25/21 13:57 156/73 Intake and Output 01/25/21 01/26/21 19:00 07:00 Intake Total 100 ml Balance 100 ml Intake Oral 100 ml # Voids 1 # Bowel Movements 2 1 Current Medications Medications (Trade) Dose Ordered Sig/Maycol Route PRN Reason Start Time Stop Time Status Last Admin Dose Admin Acetaminophen (Tylenol) 650 mg Q4H PRN ORAL Mild Pain (Pain Scale 1-3) 01/21/21 20:45 02/20/21 20:44 Acetaminophen (Tylenol) 650 mg Q4H PRN ORAL Temp >100.5 01/21/21 20:45 02/20/21 20:44 Acetaminophen/ Hydrocodone Bitart ([place] 10/325) 1 tab Q4H PRN ORAL For Pain 01/21/21 20:45 01/28/21 20:44 01/26/21 10:52 Amlodipine Besylate (Norvasc) 10 mg DAILY ORAL 01/24/21 09:00 02/23/21 08:59 01/26/21 08:45 Aspirin (Ecotrin) 81 mg DAILY ORAL 01/22/21 09:00 03/08/21 08:59 01/26/21 08:45 Clonidine HCl (Catapres Tab) 0.1 mg Q4H PRN ORAL sbp > 160 mmHg 01/23/21 13:15 04/23/21 13:14 01/24/21 23:58 Dextrose (Dextrose 50%) 25 ml Q30M PRN IV Hypoglycemia 01/21/21 20:45 04/21/21 20:44 Dextrose (Dextrose 50%) 50 ml Q30M PRN IV Hypoglycemia 01/21/21 20:45 04/21/21 20:44 Diphenhydramine HCl (Benadryl) 50 mg Q6H PRN ORAL Itching 01/25/21 21:30 02/24/21 21:29 01/25/21 22:01 Docusate Sodium (Colace) 100 mg TWICE A DAY ORAL 01/22/21 18:00 02/21/21 17:59 01/26/21 08:45 Epoetin Mata (Epoetin Mata(ESRD on dialysis)) 10,000 unit THU-THU-THU SUBQ 01/23/21 21:00 04/23/21 20:59 01/25/21 21:05 Escitalopram Oxalate (Lexapro) 10 mg DAILY ORAL 01/22/21 09:00 02/21/21 08:59 01/26/21 08:45 Famotidine (Pepcid) 40 mg DAILY ORAL 01/22/21 09:00 04/22/21 08:59 01/26/21 08:45 Gabapentin (Neurontin) 100 mg DAILY ORAL 01/22/21 09:00 02/21/21 08:59 01/26/21 08:45 Hydralazine HCl (Apresoline) 75 mg Q8HR ORAL 01/24/21 14:00 04/23/21 17:14 01/26/21 06:04 Lisinopril (ZestriL) 10 mg DAILY ORAL 01/25/21 09:00 02/24/21 08:59 01/26/21 08:45 Morphine Sulfate (Morphine Sulfate) 2 mg EVERY 4 HOURS PRN IVP Moderate Pain (Pain Scale 4-6) 01/21/21 20:45 01/28/21 20:44 01/23/21 01:26 Nitroglycerin (Ntg) 0.4 mg Q5M PRN SL Prn Chest Pain 01/21/21 20:45 02/20/21 20:44 Pantoprazole (Protonix) 40 mg BID ORAL 01/21/21 21:30 02/21/21 08:59 01/26/21 08:45 Phenol/Menthol (Chloraseptic) 1 spray Q3H PRN ORAL For Pain 01/24/21 21:00 04/24/21 20:59 01/24/21 20:23 Sennosides (Senokot) 8.6 mg TWICE A DAY ORAL 01/22/21 09:00 02/21/21 08:59 01/26/21 08:45 Sevelamer Carbonate (Renvela) 1,600 mg THREE TIMES A DAY ORAL 01/22/21 18:00 04/22/21 08:59 01/26/21 08:46 Zinc Sulfate (Zinc Sulfate) 220 mg DAILY ORAL 01/22/21 09:00 04/22/21 08:59 01/26/21 08:45 Height (Feet): 5 Height (Inches): 8.00 Weight (Pounds): 180 General Appearance: no apparent distress Cardiovascular: normal rate Respiratory/Chest: decreased breath sounds Abdomen: soft Juan Jose Robledo MD Jan 26, 2021 12:41
--- NOTE | 2021-01-26 13:20 | NUR ---
NURSE NOTES: patient was picked up by [facility] transportation, transpo arrangement was done thru [facility]. packet was endorsed to ambulance personnel. No IV line noted, scientific informatics project leader removed and endorsed to PA. [facility] was sent to ambulance personnel as well. report was given to Kyra farias [facility]. patient is alert and oriented with periods of confusions, not in acute distress. VS stable. left facility.
--- NOTE | 2021-01-28 10:28 | Discharge Summary ---
Discharge Summary Discharge Summary _ Date of admission: 01/21/2021 Date of discharge: 01/26/[address] Mike History of Present Illness and Brief Hospital Course Ms. Isaac is a 60-year-old female with past medical history of ESRD on hemodialysis (MWF), HIV, previous COVID-19 infection, and hypertension, who presented to the ED for blood transfusion and dialysis. Patient apparently missed dialysis the day of presentation and was found to have low hemoglobin level according to her primary MD, Dr. Mike. Patient's hemoglobin level was found to be 5.9 in the ER and was immediately transfused with 2 units of PRBC. Patient was not found to be actively bleeding. Patient was admitted to the hospital for further management. Her H&H improved and remained stable after transfusion. She was also continued on dialysis. Patient received daily dialysis throughout her hospitalization. Patient's medical condition improved and was stable for discharge. Patient was discharged back to her facility on 01/26/2021. Patient is to continue dialysis as an outpatient. Consultants: Nephrology Dr. Olivo Discharge Condition Improved and stable Final diagnoses ESRD on dialysis Anemia due to CKD Hypertensive kidney disease CAD I have been assigned to dictate discharge summary for this account. I was not involved in the patient's management Gunner Mendez Jan 28, 2021 10:28
== END 2021-01-26 13:24 | DRG 470 ==
LOC: EDBD 18:08 → EMR 19:11 → 2W 20:35 → EDBEDREQSVC 21:30 → EDBEDREQ 21:30 → 2W 01-22 06:03
PROC: 5A1D70Z Performance of Urinary Filtration, Intermittent, Less than 6 Hours Per Day (ICD-10-PCS; principal; 2021-01-22)
PROC: 30233N1 Transfusion of Nonautologous Red Blood Cells into Peripheral Vein, Percutaneous Approach (ICD-10-PCS; 2021-01-22)
DX: I12.0 Hypertensive chronic kidney disease with stage 5 chronic kidney disease or end stage renal disease (principal); N18.6 End stage renal disease; Z99.2 Dependence on renal dialysis; D63.1 Anemia in chronic kidney disease; I25.10 Atherosclerotic heart disease of native coronary artery without angina pectoris; Z88.6 Allergy status to analgesic agent; Z79.82 Long term (current) use of aspirin; Z91.15 Patient's noncompliance with renal dialysis
CPT/HCPCS: 36415; 80053; 80061; 82270; 82607; 82728; 82746; 82962; 82977; 83036; 83540; 83550; 83735; 83880; 84100; 84443; 84484; 84550; 85007; 85025; 85044; 85610; 85730; 86140; 86850; 86900; 86901; 86920; 87081; 93005; 99291; J7030